=== PATIENT | female | born 1955 | race Caucasian/White ===

== ENCOUNTER 2019-11-12 14:22 | Outpatient (CLI) | payer MEDICARE, MEDICAID, SELFPAY ==
--- NOTE | ~2019-11-12 | MM_ITS ---
EXAMINATION: MM screening jamila BI w abebe HISTORY: Screening mammogram TECHNIQUE: Craniocaudal and mediolateral oblique 3-D tomosynthesis images were obtained and synthetic 2-D images were generated. CAD analysis was submitted and interpreted. COMPARISON: 11/08/2018 bilateral digital screening mammogram 11/30/2017 diagnostic right digital mammogram 10/31/2017, 09/23/2016, 08/26/2015 bilateral digital screening mammogram examinations BREAST PARENCHYMAL COMPOSITION: There are scattered areas of fibroglandular density. FINDINGS: Numerous scattered bilateral benign calcifications. There is no evidence of suspicious mass , calcification, or architectural distortion to suggest malignancy in either breast. There has been n o suspicious interval change. IMPRESSION: 1. No mammographic evidence of malignancy. 2. Recommend routine screening mammography in one year. BI-RADS Category 2: Benign finding(s). Reviewed, dictated and finalized at location A. DENTIAL TREATMENT SPECIALIST
== END 2019-11-12 14:23 | disposition home or self-care (01) ==
LOC: ANHIMG 14:29
PROVIDERS: PCP Internal Medicine; Visit Provider Internal Medicine
DX: Z12.31 Encounter for screening mammogram for malignant neoplasm of breast (principal)
CPT/HCPCS: 77063; 77067

== ENCOUNTER 2020-05-13 12:26 | Outpatient (CLI) | payer MEDICARE, MEDICAID, SELFPAY ==
--- NOTE | ~2020-05-13 | US_ITS ---
EXAMINATION: US retroperitoneal comp DATE: 05/13/2020 13:00 INDICATION: Right ureteral stone TECHNIQUE: Multiple grayscale, color Doppler, and pulsed Doppler images of the kidneys and renal ryan sarah were obtained. COMPARISON: KUB dated 05/13/2020 FINDINGS: The right kidney measures 9.4 x 4.9 x 6.0 cm. The left kidney measures 10.8 x 5.4 x 5.1 cm. The kidne ys demonstrate normal echogenicity. Approximately 8 mm echogenic and shadowing stone at the mid right kidney. There is no hydronephrosis in either kidney. The bladder is normal with bilateral ureteral j ets visualized on color Doppler. IMPRESSION: 1. 8 mm right renal stone. No hydronephrosis. Reviewed, dictated and finalized at location B.
--- NOTE | ~2020-05-13 | XR_ITS ---
XR abdomen/kub 1V DATE: 05/13/2020 13:03 INDICATION: Bilateral calcium kidney stones TECHNIQUE: AP projection, 2 views COMPARISON: 06/18/2013 KUB FINDINGS: Multiple surgical clips overlie both upper quadrants of the abdomen. There is calcification of the abdominal aorta and iliac arteries. Radiopaque bowel sutures are noted overlying the right lower quadrant. Approximately 3 x 8.8 mm calcification overlying the right renal silhouette. Smaller calcifications a re noted overlying the right kidney. An approximately 2 mm calcific location overlies the lower pole of left kidney. Subtle minimally calcified additional possible renal stones may be present on the lef t. The psoas shadows are intact. No visceromegaly is evident. No evidence of bowel obstruction. IMPRESSION: Possible bilateral calcified kidney stones; noncontrast CT abdomen pelvis examination wou ld be more accurate for detection of urinary tract calculi. Postoperative change of the abdomen Reviewed, dictated and finalized at Location A. Reviewed, dictated and finalized at location A. IMPRESSION: Possible bilateral calcified kidney stones; noncontrast CT abdomen pelvis examination would be more accurate for detection of urinary tract calcul i. Postoperative change of the abdomen
== END 2020-05-13 12:27 | disposition home or self-care (01) ==
PROVIDERS: PCP Internal Medicine; Visit Provider Urology
DX: N20.2 Calculus of kidney with calculus of ureter (principal)
CPT/HCPCS: 74018; 76770

== ENCOUNTER 2020-05-26 10:49 | Outpatient (CLI) | payer MEDICARE, MEDICAID, SELFPAY ==
--- NOTE | 2020-05-26 11:02 | ECG_ITS ---
Measurements Intervals [place] Rate: 77 P: 51 MT: 160 QRS: 53 QRSD: 97 T: 55 QT: 373 QTc: 425 Interpretive Statements SINUS RHYTHM BASELINE ARTIFACT- V6 NORMAL ECG Electronically Signed On 05-26-2020 11:18:34 CDT by Cortes Wade D.O.
[2020-05-26 11:37] LABS: Hematocrit 38.6 % (37.0-47.0); Hemoglobin 12.1 g/dL (12.0-15.0)
[2020-05-26 12:16] LABS: INR 0.9; Prothrombin Time 12.2 Seconds (11.1-14.7)
== END 2020-05-26 10:50 | disposition home or self-care (01) ==
PROVIDERS: Anesthesiology; PCP Internal Medicine; Visit Provider Urology
DX: Z01.812 Encounter for preprocedural laboratory examination (principal); Z01.810 Encounter for preprocedural cardiovascular examination; N20.0 Calculus of kidney; D50.9 Iron deficiency anemia, unspecified; I49.9 Cardiac arrhythmia, unspecified
CPT/HCPCS: 36415; 85014; 85018; 85610; 85730; 87077; 87086; 87088; 87186; 93005

== ENCOUNTER 2020-05-28 00:11 | Outpatient (CLI) | payer MEDICARE, MEDICAID, SELFPAY ==
[2020-05-28 18:28] LABS: SARS-CoV-2 RNA PCR Negative
== END 2020-05-28 00:12 | disposition home or self-care (01) ==
LOC: ANHCOVIDDT 00:12
PROVIDERS: PCP Internal Medicine; Visit Provider Urology
DX: Z01.812 Encounter for preprocedural laboratory examination (principal); Z20.828 Contact with and (suspected) exposure to other viral communicable diseases
CPT/HCPCS: 87635; C9803; U0003

== ENCOUNTER 2020-05-30 04:18 | Day surgery (SDC) | payer MEDICARE, MEDICAID, SELFPAY ==
[2020-05-23 10:46] VITALS: BMI 31.1
[2020-05-30] VITALS (7 sets, daily range): BP systolic 129–143; BP diastolic 55–87; PULSE 75–96; RESP 12–18; TEMP 36.2–36.3; O2SAT 97–100
--- NOTE | ~2020-05-30 | XR_ITS ---
XR abdomen/kub 1V 05/30/2020 09:45 Indication: Renal stones Procedure: KUB Comparison: 05/13/2020 Findings: There are bilateral renal stones. Largest stone in the right kidney measures approximately 8 mm. There are surgical clips in the upper abdomen bilaterally. Bowel pattern is nonobstructive. The re are pelvic calcifications unchanged, likely phleboliths. No acute osseous abnormality. Impression: 1: Bilateral nephrolithiasis. Reviewed, dictated and finalized at location B. Impression: 1: Bilateral nephrolithiasis.
--- NOTE | 2020-05-30 10:07 | WPDANESEPPF ---
Anes - Initial Pre Proc Eval Procedure: Operation Date: 05/30/20 12:00 Proposed Procedures p Right Renal Extracorporeal Shock Wave Lithotripsy - David Pino MD Date/Time: 05/30/20 10:07 Surgeon: David Pino MD Pre Op Diagnosis: right kidney stone Patient Data Age: 64 Gender: F Height: 1.57 m Weight: 77.15 kg Allergies Allergy/AdvReac Type Severity Reaction Status Date / Time codeine Allergy Unknown Gastrointestinal Verified 05/30/20 10:20 Upset Sulfa (Sulfonamide Allergy Unknown THROAT Verified 05/30/20 10:20 Antibiotics) SWELLING/TROUBLE BREATHING Home Medications Medication Instructions Recorded Confirmed Type ondansetron HCl 4 mg tablet 4 mg PO Q8H PRN #90 tablet 09/24/19 05/23/20 Rx montelukast 10 mg tablet 10 mg PO DAILY #90 tablet 11/12/19 05/23/20 Rx albuterol sulfate 90 mcg/actuation 1 puff INHALATION Q4H PRN #8.5 gm 01/21/20 05/23/20 Rx aerosol inhaler omeprazole 40 mg capsule,delayed 40 mg PO BID 90 Days #180 cap 01/29/20 05/23/20 Rx release famotidine 40 mg tablet 40 mg PO DAILY #90 tablet 03/11/20 05/23/20 Rx fluticasone 250 mcg-salmeterol 50 1 inhalation INHALATION BID #180 03/11/20 05/23/20 Rx mcg/dose blistr powdr for each inhalation mirabegron 25 mg tablet,extended 25 mg PO DAILY #90 tablet 03/13/20 05/23/20 Rx release 24 hr ergocalciferol (vitamin D2) 1,250 1,250 mcg PO WEEKLY #12 cap 03/18/20 05/23/20 Rx mcg (50,000 unit) capsule hydrocodone 5 mg-acetaminophen 325 1 tablet PO Q8H PRN #90 tablet 05/12/20 05/23/20 Rx mg tablet diltiazem HCl [DILT-XR] 240 mg PO QAM 05/23/20 05/23/20 History fluoxetine 20 mg PO QAM 05/23/20 05/23/20 History levothyroxine 88 mcg PO QAM 05/23/20 05/23/20 History topiramate 100 mg PO BID 05/23/20 05/23/20 History umeclidinium [Incruse Ellipta] 1 inh INHALATION QAM 05/23/20 05/23/20 History Patient hx anesthesia problems: none Family hx anesthesia problems: none PMFSH Past Medical History Medical History (Updated 05/29/20 @ 11:04 by Rigoberto Celeste DO) Adenomatous colon polyp Chronic abdominal wound infection Chronic obstructive pulmonary disease, unspecified Chronic pain disorder Essential (primary) hypertension Gastric ulcer Gastroesophageal reflux disease Hyperlipidemia, unspecified Nausea Surgical History Surgical History (Updated 09/24/19 @ 11:27 by Bharath Sharp MD) Bariatric surgery status Social History Social History Smoking packs per day: 1 Smoking cigarettes per day: 20.0 Years smoked: 42 Smoking pack-years: 42.00 Smoking status: Former smoker Tobacco type: cigarettes Second hand tobacco smoke exposure: No Smoking end date: 09/12/12 Alcohol intake: never Living arrangements: with family Spiritual care concerns: No Anes - Eval Final PreProcedure Day of Procedure 05/30/20 10:07 Patient weight: obese Heart: regular rate and rhythm Lungs: clear to auscultation and normal air movement Airway: Mallampati scale class II Neurological: alert and oriented Last oral intake: >/= 8 hours ASA classification: III Emergent: no Anesthetic plan: proceed Anesthesia type and monitoring: general LMA and standard monitoring Informed Consent: The patient's anesthetic plan and its attendant risks and benefits were discussed with the patient/family/POA. Questions were solicited and answers provided to the satisfaction of the patient/family/POA.
[2020-05-30] MEDS: LACTATED RINGERS 1,000 ML 30 ML IV CONT ×2 (10:10→11:50)
[2020-05-30 10:34] LABS: Partial Thromboplastin Time 28.1 SECONDS (22.3-36.8)
--- NOTE | 2020-05-30 10:38 | WPDHPUPDATE1 ---
History and Physical Update Update Date/Time: 05/30/20 10:38 History and Physical has been reviewed, including an updated exam of the patient. There are NO changes in the patient's condition. Risks, benefits, and alternatives have been discussed and questions answered. Patient agrees to proceed with procedure. Plan for eswl right renal calculus
[2020-05-30] MEDS: ceFAZolin 2 GM/D5W 50 ML 2 GM/50 ML BAG IVPB (11:05)
--- NOTE | 2020-05-30 11:43 | PM.PROC ---
Procedure Note - Detailed Date of procedure: 05/30/20 Pre-op diagnosis: right kidney stone Post-op diagnosis: same Procedure performed: ESWL right renal calculus 8-9 mm Description of procedure: patient is taken the operative suite and correctly identified. Once anesthesia was obtained stone was localized in both planes. Two thousand five hundred shocks were given to the stone. Patient tolerated procedure well without any complications and was taken recovery room stable condition. She will strain her urine and follow up in the office in about 10 days with a KUB. Anesthesia: GLMA Surgeon: David Pino MD Drains: No Packing: No Pathology: none sent Complications: No immediate complications Condition: stable Disposition: PACU
[2020-05-30] MEDS: ONDANSETRON INJ 4 MG/2 ML VIAL IV PUSH (11:57)
[2020-05-30] MEDS: diphenhydrAMINE HCl INJ 50 MG/ML VIAL 25 MG IV PUSH (12:21)
== END 2020-05-30 13:36 | disposition home or self-care (01) ==
PROVIDERS: PCP Internal Medicine; Visit Provider Urology
PROC: (CPT 50590; principal; 2020-05-30 12:00)
DX: N20.0 Calculus of kidney (principal); J44.9 Chronic obstructive pulmonary disease, unspecified; I10 Essential (primary) hypertension; K21.9 Gastro-esophageal reflux disease without esophagitis; E78.5 Hyperlipidemia, unspecified; K27.9 Peptic ulcer, site unspecified, unspecified as acute or chronic, without hemorrhage or perforation; Z98.84 Bariatric surgery status; Z87.891 Personal history of nicotine dependence; E66.9 Obesity, unspecified; Z68.32 Body mass index [BMI] 32.0-32.9, adult
CPT/HCPCS: 50590; 36415; 74018; 85730; J0690; J1100; J1200; J2250; J2405; J2704; J3010; J7120

== ENCOUNTER 2020-06-11 11:42 | Outpatient (CLI) | payer MEDICARE, MEDICAID, SELFPAY ==
--- NOTE | ~2020-06-11 | XR_ITS ---
XR abdomen/kub 1V DATE: 06/11/2020 12:06 INDICATION: Right ureteral stone TECHNIQUE: AP projection, 2 views COMPARISON: 05/30/2020 KUB FINDINGS: There are surgical clips overlying both upper quadrants of the abdomen and radiopaque sutur es overlying the right mid abdomen. There are small calcific densities overlying both kidneys consistent with probable bilateral nephroli thiasis. Noncontrast CT abdomen pelvis examination would be more definitive for evaluation of number and location of urinary tract stones. No apparent ureteral calcified stone is noted. There are bilate ral calcified pelvic phleboliths. There is atherosclerotic calcification of the abdominal aorta and iliac and femoral arteries. IMPRESSION: Postoperative changes of the abdomen Suggestion bilateral nephrolithiasis; noncontrast CT abdomen pelvis would be more reliable for evalua tion of urinary tract calculi Reviewed, dictated and finalized at Location A. Reviewed, dictated and finalized at location B. IMPRESSION: Postoperative changes of the abdomen Suggestion bilateral nephrolithiasis; noncontrast CT abdomen pelvis would be mo re reliable for evaluation of urinary tract calculi
== END 2020-06-11 11:43 | disposition home or self-care (01) ==
PROVIDERS: PCP Internal Medicine; Visit Provider Urology
DX: N20.1 Calculus of ureter (principal)
CPT/HCPCS: 74018

== ENCOUNTER 2020-11-13 14:08 | Outpatient (CLI) | payer MEDICARE, MEDICAID, SELFPAY ==
--- NOTE | ~2020-11-13 | MM_ITS ---
EXAMINATION: MM screening jamila BI w abebe HISTORY: Screening TECHNIQUE: Craniocaudal and mediolateral oblique 3-D tomosynthesis images were obtained and synthetic 2-D images were generated. CAD analysis was submitted and interpreted. COMPARISON: Comparison to multiple prior studies sequentially, with oldest reviewed study dated 08/12. BREAST PARENCHYMAL COMPOSITION: There are scattered areas of fibroglandular density. FINDINGS: No significant change to benign-appearing bilateral breast calcifications. There is no evid ence of suspicious mass, calcification, or architectural distortion to suggest malignancy in either b reast. There has been no suspicious interval change. IMPRESSION: 1. No mammographic evidence of malignancy. 2. Recommend routine screening mammography in one year. BI-RADS Category 2: Benign finding(s). Reviewed, dictated and finalized at location A. H PIECER
== END 2020-11-13 14:09 | disposition home or self-care (01) ==
PROVIDERS: PCP Internal Medicine; Visit Provider Internal Medicine
DX: Z12.31 Encounter for screening mammogram for malignant neoplasm of breast (principal)
CPT/HCPCS: 77063; 77067

== ENCOUNTER 2021-06-15 11:42 | Outpatient (CLI) | payer MEDICARE, MEDICAID, SELFPAY ==
--- NOTE | ~2021-06-15 | XR_ITS ---
EXAMINATION: XR abdomen/kub 1V EXAM DATE: 06/15/2021 12:00 INDICATION:. TECHNIQUE: Frontal projection(s) of the abdomen for interpretation. Comparison is made to prior exami nation from 06/11/2020. FINDINGS: There are bilateral kidney stones, probably up to 5 mm on the right although the right anson al contour is obscured by bowel gas. Some of these kidney stones have been indicated. There is bowel anastomosis material. Moderate amount of colonic stool. No small bowel obstruction. Cholecystectomy c lips. There are mild bony degenerative changes. IMPRESSION: 1. Probable small bilateral nephrolithiasis. Reviewed, dictated and finalized at location A.
== END 2021-06-15 11:43 | disposition home or self-care (01) ==
LOC: ANHIMG 11:45
PROVIDERS: PCP Internal Medicine; Visit Provider Urology
DX: N20.0 Calculus of kidney (principal)
CPT/HCPCS: 74018

== ENCOUNTER 2021-12-15 14:14 | Outpatient (CLI) | payer MEDICARE, MEDICAID, SELFPAY ==
--- NOTE | ~2021-12-15 | MM_ITS ---
EXAMINATION: MM screening jamila BI w abebe HISTORY: Screening TECHNIQUE: Craniocaudal and mediolateral oblique 3-D tomosynthesis images were obtained and synthetic 2-D images were generated. CAD analysis was submitted and interpreted. COMPARISON: Comparison to multiple prior studies sequentially, with oldest reviewed study dated 09/23. BREAST PARENCHYMAL COMPOSITION: There are scattered areas of fibroglandular density. FINDINGS: No significant interval change to bilateral breast calcifications. There is no evidence of suspicious mass, calcification, or architectural distortion to suggest malignancy in either breast. T here has been no suspicious interval change. IMPRESSION: 1. No mammographic evidence of malignancy. 2. Recommend routine screening mammography in one year. BI-RADS Category 2: Benign finding(s). Reviewed, dictated and finalized at location A.
== END 2021-12-15 14:15 | disposition home or self-care (01) ==
PROVIDERS: PCP Internal Medicine; Visit Provider Internal Medicine
DX: Z12.31 Encounter for screening mammogram for malignant neoplasm of breast (principal)
CPT/HCPCS: 77063; 77067

== ENCOUNTER 2022-04-13 00:09 | Day surgery (SDC) | payer MEDICARE, MEDICAID, SELFPAY ==
[2022-03-26 13:46] VITALS: BMI 31.2
[2022-04-13 09:40] VITALS: BP 134/58; PULSE 106; RESP 18; TEMP 36.1; O2SAT 100; BMI 30.9
[2022-04-13] MEDS: LACTATED RINGERS 1,000 ML 150 ML IV CONT (10:09)
--- NOTE | 2022-04-13 10:29 | WPDANESEPPF ---
Anes - Initial Pre Proc Eval Procedure: Operation Date: 04/13/22 11:15 Proposed Procedures p Esophagogastroduodenoscopy & Colonoscopy - Bharath Sharp MD Date/Time: 04/13/22 10:29 Surgeon: Bharath Shrap MD Pre Op Diagnosis: YANCY Patient Data Age: 66 Gender: F Height: 1.55 m Weight: 74.3 kg Last Vital Signs Temp 97.0 F L 04/13/22 09:40 Pulse 106 H 04/13/22 09:40 Resp 18 04/13/22 09:40 BP 134/58 L 04/13/22 09:40 Pulse Ox 100 04/13/22 09:40 O2 Del Method Room Air 04/13/22 09:40 Allergies Allergy/AdvReac Type Severity Reaction Status Date / Time Sulfa (Sulfonamide Allergy Severe THROAT Verified 04/13/22 09:56 Antibiotics) SWELLING/TROUBLE BREATHING codeine AdvReac Intermediate Gastrointestinal Verified 04/13/22 09:56 Upset Home Medications Medication Instructions Recorded Confirmed Type diltiazem HCl 240 mg 240 mg PO QAM 05/23/20 04/13/22 History capsule,extended release 24 hr, controlled (DILT-XR) fluoxetine 20 mg capsule 20 mg PO QAM HOT FLASHES 05/23/20 04/13/22 History omeprazole 40 mg capsule,delayed 40 mg PO BID #180 caps 01/30/21 04/13/22 Rx release calcium carbonate 500 mg calcium 500 mg PO DAILY #90 tabs 08/04/21 04/13/22 Rx (1,250 mg) tablet fluticasone 250 mcg-salmeterol 50 1 inh inhalation BID #180 ea 08/05/21 04/13/22 Rx mcg/dose blistr powdr for inhalation (Advair Diskus) montelukast 10 mg tablet 10 mg PO DAILY #90 tabs 12/07/21 04/13/22 Rx ondansetron HCl 4 mg tablet 4 mg PO Q8H PRN nausea and 12/17/21 04/13/22 Rx vomiting #90 tabs umeclidinium 62.5 mcg/actuation 1 inh inhalation QAM #3 device 12/17/21 04/13/22 Rx blister powder for inhalation (Incruse Ellipta) levothyroxine 75 mcg tablet 75 mcg PO DAILY #90 tabs 12/28/21 04/13/22 Rx alendronate 70 mg tablet 70 mg PO WEEKLY #12 tabs 01/18/22 04/13/22 Rx topiramate 100 mg tablet 100 mg PO BID MIGRAINS #180 tabs 02/01/22 04/13/22 Rx ergocalciferol (vitamin D2) 1,250 1,250 mcg PO WEEKLY #12 caps 02/15/22 04/13/22 Rx mcg (50,000 unit) capsule (Vitamin D2) hydrocodone 5 mg-acetaminophen 325 1 tablet PO Q8H PRN pain #90 tabs 03/25/22 04/13/22 Rx mg tablet albuterol sulfate 90 mcg/actuation 1 puff inhalation Q4H PRN 03/26/22 04/13/22 History aerosol inhaler Shortness Of Breath cyanocobalamin (vitamin B-12) See Rx Instructions .Route .COMPLEX 03/26/22 04/13/22 History 1,000 mcg/mL injection solution famotidine 40 mg tablet 40 mg PO DAILY PRN Acid Reflux 03/26/22 04/13/22 History mirabegron 25 mg tablet,extended 25 mg PO DAILY 03/26/22 04/13/22 History release 24 hr (Myrbetriq) Patient hx anesthesia problems: none Family hx anesthesia problems: none Results Review: All pre-operative results and documents have been reviewed as part of the pre-operative evaluation. [facility], LAT[facility] Past Medical History Medical History Adenomatous colon polyp Chronic abdominal wound infection Chronic abdominal wound infection Chronic obstructive pulmonary disease, unspecified Chronic pain disorder COVID-19 Essential (primary) hypertension Gastric ulcer Gastroesophageal reflux disease Hyperlipidemia, unspecified Nausea Postmenopausal Postoperative intra-abdominal abscess Surgical History Surgical History Bariatric surgery status Family History Family History Sibling Hypertension Father Acute myocardial infarction, Onset Age: 62 Patient's father is Family history of cardiovascular disease, Onset Age: 62 Mother Family history of chronic obstructive pulmonary disease Family history of diabetes mellitus in first degree relative Patient's mother is Diabetes mellitus, Onset Age: 62 Social History Social History (Reviewed 12/17/21 @
--- NOTE | 2022-04-13 10:53 | PM.HPGS ---
History of Present Illness History of Present Illness Consent: Risks, benefits, and alternatives have been discussed and questions answered. Patient agrees to proceed with procedure. Chief complaint: YANCY Narrative: Mike Brandt is a 66 year old female with recurrent YANCY treated with iron in the past, Last EGD in 2019 that showed s/p bariatric surgery ? Billroth, ulcerated area in pylorus- negative pylori, Last colonoscopy 2019 with polyps. Denies overt gib. Review of Systems Constitutional: Constitutional: Denies headache(s) and Denies weakness Eyes: Eyes: Denies blurry vision ENT: Reports Normal hearing present, Denies headache(s) and Denies neck pain Cardiovascular: Cardiovascular: Denies chest pain and Denies dyspnea Respiratory: Respiratory: Denies dyspnea Gastrointestinal: Gastrointestinal: Reports no additional gastrointestinal complaints Genitourinary: Genitourinary: Denies dysuria Musculoskeletal: Musculoskeletal: Denies neck pain Integumentary/Breasts: Skin/Breast: Denies dry skin Neurologic: Reports Normal hearing present, Denies headache(s) and Denies weakness Psychiatric: Psychiatric: Denies anxiety Endocrine: Endocrine: Denies change in body appearance Hematologic/Lymphatic: Hematologic/Lymphatic: Denies easy bleeding Allergic/Immunologic: Allergic/Immunologic: Denies urticaria PMFSH Past Medical History Medical History Adenomatous colon polyp Chronic abdominal wound infection Chronic abdominal wound infection Chronic obstructive pulmonary disease, unspecified Chronic pain disorder COVID-19 Essential (primary) hypertension Gastric ulcer Gastroesophageal reflux disease Hyperlipidemia, unspecified Nausea Postmenopausal Postoperative intra-abdominal abscess Surgical History Surgical History Bariatric surgery status Family History Family History Sibling Hypertension Father Acute myocardial infarction, Onset Age: 62 Patient's father is Family history of cardiovascular disease, Onset Age: 62 Mother Family history of chronic obstructive pulmonary disease Family history of diabetes mellitus in first degree relative Patient's mother is Diabetes mellitus, Onset Age: 62 Social History Social History Smoking packs per day: 1.5 Smoking cigarettes per day: 30.0 Years smoked: 42 Smoking pack-years: 63.00 Smoking status: Never smoker Tobacco type: cigarettes Second hand tobacco smoke exposure: No Smoking end date: 09/12/12 Alcohol intake: never Substance use: never Substance use type: does not use Living arrangements: with family Gender identity (if verbalized by the patient): Female Spiritual care concerns: No Meds Home Medications and Allergies Home Medications Medication Instructions Recorded Confirmed Type diltiazem HCl 240 mg 240 mg PO QAM 05/23/20 04/13/22 History capsule,extended release 24 hr, controlled (DILT-XR) fluoxetine 20 mg capsule 20 mg PO QAM HOT FLASHES 05/23/20 04/13/22 History omeprazole 40 mg capsule,delayed 40 mg PO BID #180 caps 01/30/21 04/13/22 Rx release calcium carbonate 500 mg calcium 500 mg PO DAILY #90 tabs 08/04/21 04/13/22 Rx (1,250 mg) tablet fluticasone 250 mcg-salmeterol 50 1 inh inhalation BID #180 ea 08/05/21 04/13/22 Rx mcg/dose blistr powdr for inhalation (Advair Diskus) montelukast 10 mg tablet 10 mg PO DAILY #90 tabs 12/07/21 04/13/22 Rx ondansetron HCl 4 mg tablet 4 mg PO Q8H PRN nausea and 12/17/21 04/13/22 Rx vomiting #90 tabs umeclidinium 62.5 mcg/actuation 1 inh inhalation QAM #3 device 12/17/21 04/13/22 Rx blister powder for inhalation (Incruse Ellipta) levothyroxine 75 mcg tablet 75 mcg PO DAILY #
--- NOTE | 2022-04-13 11:13 | SUR.OPER ---
EGD ENDED 110 COLON BEGAN 111
[2022-04-13 11:30] VITALS: BP 106/63; PULSE 94; RESP 23; O2SAT 100
[2022-04-13 11:40] VITALS: BP 108/69; PULSE 94; RESP 19; O2SAT 100
[2022-04-13 11:50] VITALS: BP 130/76; PULSE 92; RESP 24; O2SAT 100
== END 2022-04-13 12:04 | disposition home or self-care (01) ==
PROVIDERS: PCP Internal Medicine; Visit Provider Internal Medicine Gastroenterology
PROC: 0DJ08ZZ Inspection of Upper Intestinal Tract, Via Natural or Artificial Opening Endoscopic (ICD-10-PCS; CPT 43235; principal; 2022-04-13 11:15)
DX: Z12.11 Encounter for screening for malignant neoplasm of colon (principal); D12.3 Benign neoplasm of transverse colon; K57.30 Diverticulosis of large intestine without perforation or abscess without bleeding; K64.8 Other hemorrhoids; Z86.16 Personal history of COVID-19; K44.9 Diaphragmatic hernia without obstruction or gangrene; I10 Essential (primary) hypertension; K21.9 Gastro-esophageal reflux disease without esophagitis; E78.5 Hyperlipidemia, unspecified; Z78.0 Asymptomatic menopausal state; Z98.84 Bariatric surgery status; E03.9 Hypothyroidism, unspecified; Z79.51 Long term (current) use of inhaled steroids; D50.8 Other iron deficiency anemias; K25.9 Gastric ulcer, unspecified as acute or chronic, without hemorrhage or perforation; Z87.891 Personal history of nicotine dependence; E66.9 Obesity, unspecified; Z68.31 Body mass index [BMI] 31.0-31.9, adult
CPT/HCPCS: 45385; 43239; 88305; 88342; J2704; J7120

== ENCOUNTER 2022-06-03 11:06 | Outpatient (CLI) | payer MEDICARE, MEDICAID, SELFPAY ==
--- NOTE | ~2022-06-03 | CT_ITS ---
EXAMINATION: CT abdomen pelvis wo con DATE: 06/03/2022 11:56 INDICATION: Right flank pain TECHNIQUE: Computed tomography (CT) of the abdomen and pelvis was performed without intravenous contr ast. The dose-length product (DLP) was 308.67 mGy-cm. Automated exposure control and iterative recons truction technique were employed. COMPARISON: 06/22/2013 FINDINGS: There is mild bronchial wall thickening in the lower lobes with centrilobular nodules and t ree-in-bud opacities. The heart size is normal. There are surgical changes near the gastroesophageal junction. The gallbladder is surgically absent. The liver, spleen, and pancreas are normal. There are stable bilateral adrenal masses containing macroscopic fat, consistent with myelolipomas. There are two stones of the right renal pelvis which measure 7 mm and 5 mm. Punctate nonobstructing stones of t he right kidney measure up to 2 mm. There are nonobstructing stones of the left kidney which measure up to 4 mm. Cysts of the kidneys measure up to 11 mm on the right. There is a 3 mm stone in the urina ry bladder near the left ureterovesicular junction. There is calcified atherosclerosis of the aorta a nd many of the other arteries. No pathologically enlarged abdominal or pelvic lymph nodes are identif ied. Colonic diverticulosis is present without evidence of diverticulitis. There is no free intraperi toneal gas or evidence of bowel obstruction. There are changes of mesh ventral hernia repair. IMPRESSION: 1. Stones of the right renal pelvis measuring 7 mm and 5 mm. 2. 3 mm stone in the urinary bladder. 3. Nonobstructing bilateral nephrolithiasis. Reviewed, dictated and finalized at location A.
== END 2022-06-03 11:07 | disposition home or self-care (01) ==
PROVIDERS: PCP Internal Medicine; Visit Provider Nurse Practitioner
DX: N21.0 Calculus in bladder (principal); N20.0 Calculus of kidney
CPT/HCPCS: 74176

== ENCOUNTER 2022-06-21 12:17 | Outpatient (CLI) | payer MEDICARE, MEDICAID, SELFPAY ==
--- NOTE | 2022-06-21 12:34 | ECG_ITS ---
Measurements Intervals [place] Rate: 95 P: 36 NE: 143 QRS: 29 QRSD: 93 T: 58 QT: 348 QTc: 439 Interpretive Statements SINUS RHYTHM COMPARED TO ECG 05/26/2020 11:34:12 NO SIGNIFICANT CHANGES Electronically Signed On 06-22-2022 13:06:27 CDT by Ann Garrison M.D.
[2022-06-21 14:06] LABS: Hemoglobin 10.3 g/dL (12.0-15.0)
[2022-06-21 14:17] LABS: Prothrombin Time 13.1 Seconds (11.1-14.7)
[2022-06-21 14:18] LABS: Partial Thromboplastin Time 29.7 SECONDS (22.3-36.8)
== END 2022-06-21 12:18 | disposition home or self-care (01) ==
LOC: ANHSURGERY 12:23
PROVIDERS: Anesthesiology; PCP Internal Medicine; Visit Provider Urology
DX: N20.0 Calculus of kidney (principal); D50.8 Other iron deficiency anemias; Z01.818 Encounter for other preprocedural examination
CPT/HCPCS: 36415; 85014; 85018; 85610; 85730; 87086; 93005

== ENCOUNTER 2022-06-25 01:08 | Day surgery (SDC) | payer MEDICARE, MEDICAID, SELFPAY ==
[2022-06-17 16:25] VITALS: BMI 30.2
--- NOTE | 2022-06-17 16:31 | SUR.PREOP ---
Addendum entered by Marie Padron RN 06/18/22 10:50: MAY ALSO TAKE FLUOXETINE AND TOPIRAMATE WITH A SMALL SIP OF WATER THE MORNING OF THE PROCEDURE. Original Note: Report to the Outpatient Waiting Room, entrance under the green pavilion located off [facility], at time 0630 on date 06/25/22. OR Time: 0830. Time changes happen often and if your time is changed the preop area will call you the afternoon before. - You and your visitor will be asked to self-screen and do not enter if you have any COVID symptoms. - We encourage only one visitor and NO visitors under age 16 are allowed at this time. Your visitor will receive communication by the phone number that is given day of service. - The patient visitor is requested to social distance or may leave the building when not with patient due to restrictions. - A mask is required within the hospital. Patients may have clear liquids (water, carbonated beverages, clear teas, apple juice) until 3 hours prior to surgery with a maximum of 20 ounces. - No food from midnight until time of surgery - Infants may have breast milk until 4 hours before surgery, infant formula 6 hours prior to surgery. - Children will be allowed to drink immediately following surgery. If applicable, please bring a bottle or sippy cup to assist with drinking. Juice, water, soda, and popsicles are readily available. For infants on formula, please bring formula the day of surgery. Pacifiers are allowed. Take the following medications with a SIP of water the morning of surgery: levothyroxine, diltiazem Medications to discontinue per physician hold vitamins and supplements for 3 days before surgery Date to take last dose Please no make-up, nail azeri, hairspray, perfume, deodorant, or body powder the day of surgery. No jewelry (including any body piercings) or valuables the day of surgery, leave them at home. Please take a shower or bath the night before, or the morning of, surgery with an antibacterial soap. Wear comfortable, loose fitting clothing. Children are encouraged to wear pajamas. - Jewelry must be removed prior to entering the operating room. Rings and piercings that are not removed may be cut off. - The hospital will not accept responsibility for valuables. - Please leave all valuables, including medications, at home the day of surgery. If you are going home after surgery, a licensed cpr ambulance driver must drive you home. - NO public transportation without another adult. - We recommend that an adult stay with you for 24 hours following discharge. - We also recommend that you do not drive, make important decision, drink alcoholic beverages, or take any drugs that were not prescribed by your health care provider for at least 24 hours after your discharge time. For Pediatric surgeries, we recommend two adults accompany the child home. Follow any additional instructions given to you from your surgeon. If you or anyone in your household have experienced Covid symptoms in the past week, please notify your surgeon or the nurse liaison at the phone number below for possible testing. Telephone instructions given to patient and asked if any additional questions and then verbalized understanding. Patient advised to call surgeon office or pre surgery nurse liaison [phone] if any additional questions.
[2022-06-25] VITALS (7 sets, daily range): BP systolic 90–126; BP diastolic 50–68; PULSE 94–110; RESP 10–18; TEMP 36.3–36.4; O2SAT 96–100
--- NOTE | ~2022-06-25 | XR_ITS ---
EXAMINATION: XR abdomen/kub 1V DATE: 06/25/2022 06:39 INDICATION: Kidney stone. TECHNIQUE: A supine view of the abdomen on 2 radiographs was obtained. COMPARISON: Abdomen radiographs 06/15/2021, CT abdomen and pelvis 06/03/2022 FINDINGS: There are phleboliths in the pelvis. There are 2 stones in right kidney with the larger deshawn suring 8 mm. There is a 3 mm stone in left kidney. IMPRESSION: 1. Bilateral kidney stones. Reviewed, dictated and finalized at location A. IMPRESSION: 1. Bilateral kidney stones.
[2022-06-25] MEDS: LACTATED RINGERS 1,000 ML 30 ML IV CONT (07:15)
--- NOTE | 2022-06-25 07:15 | WPDHPUPDATE1 ---
History and Physical Update Update Date/Time: 06/25/22 07:15 History and Physical has been reviewed, including an updated exam of the patient. There are NO changes in the patient's condition. Risks, benefits, and alternatives have been discussed and questions answered. Patient agrees to proceed with procedure. Proceed with right renal eswl
--- NOTE | 2022-06-25 07:32 | WPDANESEPPF ---
Anes - Initial Pre Proc Eval Procedure: Operation Date: 06/25/22 08:30 Proposed Procedures p Right Extracorporeal Shock Wave Lithotripsy - David Pino MD Date/Time: 06/25/22 07:32 Surgeon: David Pino MD Pre Op Diagnosis: Right Renal Stone Patient Data Age: 66 Gender: F Height: 1.57 m Weight: 72.4 kg Last Vital Signs Temp 36.4 C L 06/25/22 06:53 Pulse 110 H 06/25/22 06:53 Resp 18 06/25/22 06:53 BP 109/61 06/25/22 06:53 Pulse Ox 100 06/25/22 06:53 O2 Del Method Room Air 06/25/22 06:53 Allergies Allergy/AdvReac Type Severity Reaction Status Date / Time Sulfa (Sulfonamide Allergy Severe THROAT Verified 06/25/22 06:41 Antibiotics) SWELLING/TROUBLE BREATHING codeine AdvReac Intermediate Gastrointestinal Verified 06/25/22 06:41 Upset Home Medications Medication Instructions Recorded Confirmed Type diltiazem HCl 240 mg 240 mg PO QAM 05/23/20 06/25/22 History capsule,extended release 24 hr, controlled (DILT-XR) fluoxetine 20 mg capsule 20 mg PO QAM HOT FLASHES 05/23/20 06/25/22 History calcium carbonate 500 mg calcium 500 mg PO DAILY #90 tabs 08/04/21 06/25/22 Rx (1,250 mg) tablet umeclidinium 62.5 mcg/actuation 1 inh inhalation QAM #3 device 12/17/21 06/25/22 Rx blister powder for inhalation (Incruse Ellipta) ergocalciferol (vitamin D2) 1,250 1,250 mcg PO WEEKLY #12 caps 02/15/22 06/25/22 Rx mcg (50,000 unit) capsule (Vitamin D2) famotidine 40 mg tablet 40 mg PO DAILY PRN Acid Reflux 03/26/22 06/25/22 History omeprazole 40 mg capsule,delayed 40 mg PO BID #180 caps 04/13/22 06/25/22 Rx release mirabegron 25 mg tablet,extended 25 mg PO DAILY #90 tabs 05/10/22 06/25/22 Rx release 24 hr (Myrbetriq) topiramate 100 mg tablet 100 mg PO BID MIGRAINS #180 tabs 05/20/22 06/25/22 Rx montelukast 10 mg tablet 10 mg PO DAILY #90 tabs 06/04/22 06/25/22 Rx phenazopyridine 100 mg tablet 100 mg PO TID 06/04/22 06/25/22 History (Pyridium) tamsulosin 0.4 mg capsule (Flomax) 0.4 mg PO DAILY 06/04/22 06/25/22 History fluticasone 250 mcg-salmeterol 50 1 inh inhalation BID 06/17/22 06/25/22 History mcg/dose blistr powdr for inhalation (Advair Diskus) levothyroxine 75 mcg tablet 75 mcg PO DAILY #90 tabs 06/21/22 06/25/22 Rx sucralfate 1 gram tablet See Rx Instructions .Route 06/23/22 06/25/22 Rx .COMPLEX #90 tabs Patient hx anesthesia problems: post op nausea/vomiting Family hx anesthesia problems: post op nausea/vomiting Results Review: All pre-operative results and documents have been reviewed as part of the pre-operative evaluation. [facility] Past Medical History Medical History Adenomatous colon polyp Chronic abdominal wound infection Chronic abdominal wound infection Chronic obstructive pulmonary disease, unspecified Chronic pain disorder COVID-19 Essential (primary) hypertension Gastric ulcer Gastroesophageal reflux disease Hyperlipidemia, unspecified Nausea Postmenopausal Postoperative intra-abdominal abscess Surgical History Surgical History Bariatric surgery status Family History Family History Sibling Hypertension Father Acute myocardial infarction, Onset Age: 62 Patient's father is Family history of cardiovascular disease, Onset Age: 62 Mother Family history of chronic obstructive pulmonary disease Family history of diabetes mellitus in first degree relative Patient's mother is Diabetes mellitus, Onset Age: 62 Social History Social History Smoking packs per day: 1.5 Smoking cigarettes per day: 30.0 Years smoked: 42 Smoking pack-years: 63.00 Smoking status: Former smoker Tobacco type: cigarettes Second hand to
[2022-06-25] MEDS: ONDANSETRON INJ 4 MG/2 ML VIAL IV PUSH (08:21)
[2022-06-25] MEDS: SCOPOLAMINE 1.5 MG PATCH TRANSDERM (08:22)
[2022-06-25] MEDS: ceFAZolin 2 GM/D5W 50 ML 2 GM/50 ML BAG IVPB (08:30)
--- NOTE | 2022-06-25 09:17 | W.PM.PROC2 ---
Procedure Note - Detailed Date of Procedure 06/25/22 Pre-op Diagnosis Right Renal Stone Post-op Diagnosis Same Procedure Performed ESWL right renal calculus Surgeon David Pino MD Anesthesia General Description of Procedure Patient is taken to the operative suite correctly identified. Once anesthesia was obtained patient's right renal stone was localized. She had 2 stones adjacent to each other. Two thousand five hundred shocks total were given to this area. Patient tolerated procedure well without any complications and was taken recovery stable condition. She will follow-up in 7-10 days with [facility]. Developed any problems to call the office to be dealt with appropriately Drains No Packing No Pathology None sent Complications No immediate complications Condition Stable Disposition PACU
[2022-06-25] MEDS: fentaNYL CITRATE INJ (*CRX) 100 MCG/2 ML VIAL 25 MCG IV PUSH ×4 (09:28→09:57)
== END 2022-06-25 10:54 | disposition home or self-care (01) ==
PROVIDERS: PCP Internal Medicine; Visit Provider Urology
PROC: (CPT 50590; principal; 2022-06-25 08:30)
DX: N20.0 Calculus of kidney (principal); I10 Essential (primary) hypertension; K21.9 Gastro-esophageal reflux disease without esophagitis; J44.9 Chronic obstructive pulmonary disease, unspecified; E78.5 Hyperlipidemia, unspecified; G89.29 Other chronic pain; Z98.84 Bariatric surgery status; Z87.891 Personal history of nicotine dependence; Z79.51 Long term (current) use of inhaled steroids
CPT/HCPCS: 50590; 74018; A9270; J0690; J1100; J2405; J2704; J3010; J7120

== ENCOUNTER 2022-07-01 18:58 | Inpatient (IN) | payer MEDICARE, MEDICAID, SELFPAY ==
--- NOTE | ~2022-07-01 | CT_ITS ---
EXAMINATION: CT abdomen pelvis w con DATE: 07/04/2022 06:50 INDICATION: Transaminitis. TECHNIQUE: Computed tomography (CT) of the abdomen and pelvis was performed with 100 mL Omnipaque-350 intravenous contrast. Automated exposure control and iterative reconstruction technique were employe d. The dose-length product was 686.16 mGy-cm. COMPARISON: 06/03/2022 FINDINGS: Calcified right lower lobe nodule consistent with old granulomatous disease. Consistent with mild bro nchiectasis and numerous tiny centrilobular nodules with tree-in-bud pattern in the bilateral lower l obes. Heart size is normal. Atherosclerotic coronary artery calcific location. No pericardial effusio n. Postoperative changes at the proximal stomach. Unchanged intra and extra hepatic biliary ductal di lation with the common bile duct measuring up to 12 mm in maximal diameter. This likely related to pr ior cholecystectomy with surgical clips at the gallbladder fossa. Bilateral macroscopic fat-containin g adrenal myelolipomas, the larger on the right measuring 3.0 cm and the smaller left measuring 2.3 c m. Small cyst at the upper poles of both kidneys largest on the left measuring 1.4 cm. 2 mm nonobstructi ng left renal stone. Right internal ureteral stent with loops formed in the bladder and an upper pole calyx.. Right renal stones, the largest measuring 3 to 4 mm at the right renal pelvis with smaller s tones in the inferior calyces. No stones along the right ureter. No hydronephrosis. There is haziness to the fat at the right renal sinus and small regions of subtle decreased cortical enhancement at th e upper pole the right kidney suspicious for ascending urinary tract infection with pyelitis and pyel onephritis. Postoperative change of prior ventral hernia mesh repair. There is mild colonic diverticulosis with a sigmoid predominance. There is no adjacent inflammatory change to suggest diverticulitis. Normal a ppendix. Masslike suture line along a segment of small bowel in the anterior lower abdomen. No bowel obstruction. Bladder is normal. The uterus is not identified and has likely been surgically resected. No free intraperitoneal gas or fluid. No pathologically enlarged abdominal or pelvic lymphadenopathy . Multiple subcutaneous dystrophic calcifications in ringlike density surrounding central macroscopic fat and anterior abdominal wall and a larger partially calcified nodule in the subcutaneous fat at t he left buttock, all likely related to subcutaneous injections, secondary fat necrosis and granuloma formation. There is calcified atherosclerosis of the aorta and many of the other arteries. Mild scatt ered degenerative skeletal changes. IMPRESSION: 1. Nonobstructing right nephrolithiasis with right internal ureteral stent in expected position. 2. Mild haziness to the right renal fat suggesting ascending urinary tract infection and pyelitis. 3. Unchanged mild intra and extra hepatic biliary ductal dilation likely related to prior cholecystec kyle but could correlate with liver function tests. 4. Bilateral adrenal myelolipomas, the larger on the right measuring 3 cm. 5. Stable appearance of mild bronchiectasis and tree-in-bud opacities in the bilateral lower lung zon es, likely sequela of chronic infection. Reviewed, dictated and finalized at location A. IMPRESSION: 1. Nonobstructing right nephrolithiasis with right internal ureteral stent in e xpected position. 2. Mild haziness to the right renal fat suggesting ascending urinary tract infe ction and pyelitis. 3. Unchanged mild intra and extra hepatic biliary ductal dilation likely relate d to prior cholecystectomy but could correlate with liver function tests. 4. Bilateral adrenal myelolipomas, the larger on the right measuring 3 cm. 5. Stable a
--- NOTE | ~2022-07-01 | US_ITS ---
EXAMINATION: US abdomen limited DATE: 07/03/2022 08:20 INDICATION: Transaminitis TECHNIQUE: Multiple grayscale and Doppler ultrasound images of the abdomen were obtained. COMPARISON: CT, 06/03/2022 FINDINGS: The head and body of the pancreas are normal. The pancreatic tail is obscured by bowel gas. There are mildly dilated intrahepatic bile ducts in the left hepatic lobe in association with a slig htly hyperechoic area. The liver is otherwise normal with normal echogenicity and echotexture. No jane face nodularity. Normal hepatopetal flow in the main portal vein. The gallbladder is surgically absen t. The common bile duct measures 11 mm, consistent with post cholecystectomy state. There was no sono graphic Levin sign. A right internal ureteral stent is noted. IMPRESSION: 1. Mildly dilated intrahepatic bile ducts in the left hepatic lobe in association with a hyperechoic area of unclear significance. Recommend follow-up CT with contrast. Reviewed, dictated and finalized at location A. IMPRESSION: 1. Mildly dilated intrahepatic bile ducts in the left hepatic lobe in associati on with a hyperechoic area of unclear significance. Recommend follow-up CT with contrast.
--- NOTE | ~2022-07-01 | MR_ITS ---
EXAMINATION: MR MRCP wo/w con/w 3D wo ind DATE: 07/06/2022 12:42 INDICATION: Dilated bile duct. TECHNIQUE: Magnetic resonance imaging (MRI) of the abdomen was performed without and with 15 mL Multi Marielena intravenous contrast. Sequences included coronal T2-weighted FS FSE, coronal T2-weighted FSE, a xial T1-weighted LAVA, coronal FS FIESTA, axial dual-echo T1-weighted SPGR, coronal lava-FLEX, sagitt al T2-weighted FSE, axial T2-weighted FSE, and axial DWI. Thick-slab T2-weighted FSE images were obta ined for magnetic resonance cholangiopancreatography (MRCP). Maximum intensity projection 3-D reconst ructions of the volumetric data were created by the technologist. Postcontrast sequences included cor onal LAVA-flex and time course of axial T1-weighted LAVA. COMPARISON: CT abdomen and pelvis 07/04/2022, 06/22/13 FINDINGS: ABDOMEN MRI: There is decreased signal in the liver and spleen on in-phase imaging, consistent with h emosiderosis. There is mild intrahepatic biliary duct dilatation. The gallbladder is absent. 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 There are masses in the adrenal glands bilaterally containing fat measu ring up to 3.3 cm on the right, consistent with myelolipomas. There is cortical thinning of the kidne ys. There are cysts in the kidneys measuring up to 14 mm on the right. There are no dilated loops of bowel. There are no pathologically enlarged lymph nodes. There is no free intraperitoneal fluid. Ther e is chronic subcutaneous fat necrosis in anterior abdominal wall. ABDOMEN MRCP: The common duct is dilated to 11 mm. IMPRESSION: 1. Mild intrahepatic and extrahepatic biliary duct dilatation status post cholecystectomy, stable fro m 06/22/13. No choledocholithiasis. Reviewed, dictated and finalized at location A. IMPRESSION: 1. Mild intrahepatic and extrahepatic biliary duct dilatation status post curt cystectomy, stable from 06/22/13. No choledocholithiasis.
--- NOTE | ~2022-07-01 | XR_ITS ---
EXAMINATION: XR retrograde pyelo w/stent RT DATE: 07/02/2022 14:56 INDICATION: Right kidney stones. TECHNIQUE: 4 intraoperative spot fluoroscopic views of the abdomen and pelvis were obtained. I was no t present. Fluoroscopy exposure time was 58 seconds. COMPARISON: CT abdomen and pelvis 06/03/2022 FINDINGS: The right-sided retrograde pyelogram demonstrates mild right hydronephrosis. The final imag es demonstrate a right internal ureteral stent in expected position. IMPRESSION: 1. Right internal ureteral stent in expected position. Reviewed, dictated and finalized at location A.
--- NOTE | 2022-07-01 19:02 | ADMGEN ---
This patient, Mike Brandt, was admitted to [address] [facility] Surg Room 300-01. Patient/family oriented to hospital policies and general routines including ID bracelet, bed and alarms, visiting hours, pain management, procedures, bathroom and other care routines, personal items, smoking policy, room service/diet, and visiting hours. Information on how to activate the Rapid Response Team has been discussed. Patient/Family are encouraged to report perceived risks to care and to ask questions if they do not understand what they are told or what they should do.
[2022-07-01 20:36] VITALS: BP 122/58; PULSE 112; RESP 18; TEMP 36.9; O2SAT 99
--- NOTE | 2022-07-01 20:59 | WPDURCON ---
Assessment and Plan Assessment and plan (1) Right ureteral stone: Code(s): N20.1 - Calculus of ureter Status: Acute Plan 66F with retained 7mm obstructing stone in the mid right ureter after right renal ESWL last week without infection on UA and no fevers/leukocytosis currently. - Balance of care per primary team. Hydration and PO intake ok until midnight tonight as patient has already had some PO intake throughout the day today. - NPO at midnight tonight for possible cystoscopy and right ureteral stent placement tomorrow. Urology Consult Note HPI Date Seen: 07/01/22 Requesting Physician: Vivek Crow MD Primary Care Provider: Kartik Abarca DO Consult Narrative Narrative: Mike Brandt is a 66 year old female with history of pyloric ulcer and chronic anemia presenting with retained right ureteral stones s/p ESWL. Patient underwent ESWL for a right renal stone last week with Dr. Pino. SHe stated after this procedure, a few days later she began to feel pain on her right side that seemed to worsen. Then yesterday it continued to worsen and she was having nausea/emesis. Called clinic and was told to present to ED. Patient denied any fevers/chills. In ED at [facility], a UA did not note any signs of infection, WBC 9, Cr 0.9. However, she was noted to have multiple fragments in the right kidney and a right 7mm obstructing mid/distal ureteral stone with proximal hydronephrosis, along with multiple up to 9mm stones in the right kidney. She was then transferred to [place]. Here the patient states she still has some discomfort but feels better. Continues to deny fevers/chills. Mild tachycardia, but states she runs tachycardic due to her anemia. She did have some PO intake intermittently today prior to beig transferred to our ED. Review of Systems Review of Systems: Neg other than HPI PMFSH Past Medical History Medical History Adenomatous colon polyp Chronic abdominal wound infection Chronic abdominal wound infection Chronic obstructive pulmonary disease, unspecified Chronic pain disorder COVID-19 Essential (primary) hypertension Gastric ulcer Gastroesophageal reflux disease Hyperlipidemia, unspecified Nausea Postmenopausal Postoperative intra-abdominal abscess Surgical History Surgical History Bariatric surgery status Family History Family History Sibling Hypertension Father Acute myocardial infarction, Onset Age: 62 Patient's father is Family history of cardiovascular disease, Onset Age: 62 Mother Family history of chronic obstructive pulmonary disease Family history of diabetes mellitus in first degree relative Patient's mother is Diabetes mellitus, Onset Age: 62 Social History Social History Smoking packs per day: 1.5 Smoking cigarettes per day: 30.0 Years smoked: 42 Smoking pack-years: 63.00 Smoking status: Former smoker Tobacco type: cigarettes Second hand tobacco smoke exposure: No Smoking end date: 06/17/22 Alcohol intake: never Substance use: never Substance use type: does not use Gender identity (if verbalized by the patient): Female Spiritual care concerns: No Meds Home Medications and Allergies Home Medications Medication Instructions Recorded Confirmed Type diltiazem HCl 240 mg 240 mg PO QAM 05/23/20 07/01/22 History capsule,extended release 24 hr, controlled (DILT-XR) fluoxetine 20 mg capsule 20 mg PO QAM HOT FLASHES 05/23/20 07/01/22 History calcium carbonate 500 mg calcium 500 mg PO DAILY #90 tabs 08/04/21 07/01/22 Rx (1,250 mg) tablet umeclidinium 62.5 mcg/actuation 1 inh inhalation QAM #3 device 12/17/21 07/01/22 Rx blister powder for inhalation (Inc
--- NOTE | 2022-07-01 21:37 | PM.IMHP ---
H&P: HPI History of Present Illness Date/Time: 07/01/22 21:37 Chief Complaint: Right flank pain Narrative: this is a 66-year-old female patient who has a history of having kidney stones. The patient was having right flank pain and was seen at [facility] in [place]. The patient also has chronic anemia due to a gastric ulcer that is in the pylorus of the stomach after a gastric bypass. She has had blood transfusions in the past. Her white count was 9.4 today. Her H&H was 8.6 and 29.9 at [facility]. Urinalysis had 3+ blood but was negative for UTI. The patient does does have a history of SVT and is on diltiazem. The patient was tachycardic today. The patient has been seen by Dr. Pino in the past. Urology had been notified and agreed to consult on this patient. Her urine was sent for culture. The patient had a CT of the abdomen and pelvis the patient has approximately 5 x 4 x 7 mm calculus in the right ureter near level of iliac vessels which produces moderate right hydronephrosis and hydroureter. Enlargement of the right kidney and edema in the Alisha nephric space. Secondary infection cannot be excluded. Urology has been here and has already seen the patient. The plan is for a stent. The patient was given morphine at [facility] the patient stated that she only had minimal relief. The patient stated that she has had Dilaudid in the past. the patient had ESWL right renal calculus on 06/25/2022 please see operative note for that date. The patient is being admitted to observation status on the date of service of 07/01/2022. Review of Systems Review of Systems: See HPI All systems reviewed & are unremarkable except as noted in HPI and below Constitutional: Constitutional: Reports as per HPI and Reports no additional constitutional complaints Eyes: Eyes: Reports as per HPI and Reports no additional eye complaints ENT: Reports system reviewed and no additional complaints, except as documented and Reports Normal hearing present Cardiovascular: Cardiovascular: Reports no additional cardiovascular complaints Respiratory: Respiratory: Reports no additional respiratory complaints and Reports no additional respiratory complaints Gastrointestinal: Gastrointestinal: Reports as per HPI and Reports no additional gastrointestinal complaints Musculoskeletal: Musculoskeletal: Reports no additional musculoskeletal complaints Integumentary/Breasts: Skin/Breast: Reports system reviewed and no additional complaints, except as docu and Reports as per HPI Neurologic: Reports system reviewed and no additional complaints, except as documented, Reports as per HPI and Reports Normal hearing present Psychiatric: Psychiatric: Reports no additional psychiatric complaints and Reports as per HPI Endocrine: Endocrine: Reports no additional endocrine complaints Hematologic/Lymphatic: Hematologic/Lymphatic: Reports no additional hematologic/lymphatic complaints Allergic/Immunologic: Allergic/Immunologic: Reports no additional allergic/immunologic complaints COUNTS INCLUDE 234 BEDS AT THE [facility] Past Medical History Medical History (Updated 07/01/22 @ 21:58 by Kaykay Barker NP) Abnormal mammogram Adenomatous colon polyp Chronic abdominal wound infection Chronic abdominal wound infection Chronic obstructive pulmonary disease, unspecified Chronic pain disorder COVID-19 Encounter for HCV screening test for low risk patient Essential (primary) hypertension Gastric ulcer Gastroesophageal reflux disease Hyperlipidemia, unspecified Impaired glucose tolerance (oral) Left wrist pain Migraine Nausea Postmenopausal Postoperative intra-abdominal abscess Right sided sciatica SVT (supraventricular tachycardia) Uterine bleeding, dysfunctional Surgical History Surgical History (Updated 07/01/22 @ 21:46 by Kaykay Barker NP) Bariatric surgery status Hx of abdominal surgery the patient stated she had a triple hernia repair. She had mesh placed in
[2022-07-01] MEDS: HYDROmorphone HCL INJ (*CRX) 1 MG/ML SYR IV PUSH (22:12)
[2022-07-01] MEDS: DEXTROSE 5%/0.9% SOD CHL 1,000 ML 100 ML IV CONT (22:17)
[2022-07-01] MEDS: PANTOPRAZOLE SODIUM IV 40 MG VIAL IV PUSH (22:18)
[2022-07-01] MEDS: ONDANSETRON INJ 4 MG/2 ML VIAL IV PUSH (22:19)
[2022-07-01] MEDS: TOPIRAMATE 100 MG TABLET PO (22:21)
[2022-07-01 23:37] VITALS: BP 105/61; PULSE 101; RESP 18; TEMP 36.1; O2SAT 98
[2022-07-02] VITALS (12 sets, daily range): BP systolic 101–122; BP diastolic 41–57; PULSE 69–102; RESP 16–20; TEMP 36.2–37.2; O2SAT 92–100; BMI 31.4
[2022-07-02] MEDS: HYDROmorphone HCL INJ (*CRX) 1 MG/ML SYR IV PUSH ×5 (03:45→22:07)
[2022-07-02] MEDS: ONDANSETRON INJ 4 MG/2 ML VIAL IV PUSH ×3 (04:00→22:13)
[2022-07-02 06:36] LABS: Lactic Acid Reflex 0.6 mmol/L (0.7-2.0)
[2022-07-02 06:42] LABS: Alanine Aminotransferase 127 U/L (6-35); Albumin Level 2.7 g/dL (3.5-5.1); Alkaline Phosphatase 288 U/L (38-126); Anion Gap 11 mmol/L (8-16); Aspartate Amino Transferase 435 U/L (14-36); Bilirubin,Total 0.2 mg/dL (0.2-1.3); Blood Urea Nitrogen 12 mg/dL (7-17); Calcium 7.8 mg/dL (8.4-10.2); Carbon Dioxide 21 mmol/L (22-30); Chloride 111 mmol/L (98-107); Estimated Glomerular Filt Rate 56; Glucose 128 mg/dL (65-110); Potassium 3.4 mmol/L (3.4-5.0); Sodium 143 mmol/L (137-145)
[2022-07-02 06:53] LABS: CRP 11.9 mg/dL (<1.0)
[2022-07-02 08:48] LABS: Hematocrit 25.4 % (37.0-47.0); Hemoglobin 7.2 g/dL (12.0-15.0); Mean Corpuscular HGB Conc 28.3 g/dl (32-36); Mean Corpuscular Hemoglobin 26.8 pg (26-34); Mean Corpuscular Volume 94.4 fl (80-100); Mean Platelet Volume 10.1 fl (7.4-10.4); Platelet Count Result 281 k/mm3 (150-375); Red Blood Count 2.69 M/mm3 (4.2-5.4); Red Cell Distribution Width 19.1 % (11.5-14.5); White Blood Count 4.9 K/mm3 (4.5-10.0)
[2022-07-02 08:57] LABS: Alanine Aminotransferase 134 U/L (6-35); Albumin Level 2.6 g/dL (3.5-5.1); Alkaline Phosphatase 283 U/L (38-126); Aspartate Amino Transferase 445 U/L (14-36); Bilirubin,Total 0.2 mg/dL (0.2-1.3)
[2022-07-02] MEDS: DEXTROSE 5%/0.9% SOD CHL 1,000 ML 100 ML IV CONT (08:57)
[2022-07-02] MEDS: FLUoxetine HCL 20 MG CAPSULE PO (08:58)
[2022-07-02] MEDS: TOPIRAMATE 100 MG TABLET PO ×2 (08:59→18:28)
[2022-07-02] MEDS: MIRABEGRON 25 MG ER TABLET PO (08:59)
[2022-07-02] MEDS: PANTOPRAZOLE SODIUM IV 40 MG VIAL IV PUSH ×2 (08:59→22:08)
[2022-07-02] MEDS: MONTELUKAST SODIUM 10 MG TABLET PO (08:59)
[2022-07-02] MEDS: CALCIUM CARBONATE (OSCAL) 500 MG TABLET PO (08:59)
[2022-07-02] MEDS: UMECLIDINIUM BROMIDE 62.5 MCG ELLIPTA 1 PUFF INHALATION (09:04)
[2022-07-02] MEDS: FLUTICASONE/SALMETEROL 115-21 MCG INHALER 1 PUFF 2 PUFF INHALATION ×2 (09:04→21:08)
--- NOTE | 2022-07-02 12:30 | WPDANESEPPF ---
Anes - Initial Pre Proc Eval Procedure: Operation Date: 07/02/22 13:45 Proposed Procedures p Cystoscopy, Right Ureteroscopy, Possible Right Retrograde Pyelogram, Possible Right Stone Extraction,Possible Right Stent Placement, Possible Holmium Laser - Wilbert Daniel MD <Rigoberto Celeste DO - Last Filed: 07/03/22 10:25> Date/Time: 07/02/22 12:30 <Rigoberto Celeste DO - Last Filed: 07/03/22 10:25> Surgeon: Fredy <Rigoberto Celeste DO - Last Filed: 07/03/22 10:25> Pre Op Diagnosis: Pyelonephritis, Kidney stone <Rigoberto Celeste DO - Last Filed: 07/03/22 10:25> Patient Data Age: 66 Gender: F Height: 1.57 m Weight: 77.9 kg <Rigoberto Celeste DO - Last Filed: 07/03/22 10:25> Last Vital Signs Temp 37.1 C 07/02/22 12:00 Pulse 100 07/02/22 12:00 Resp 18 07/02/22 12:00 BP 103/51 L 07/02/22 12:00 Pulse Ox 97 07/02/22 12:00 O2 Del Method Room Air 07/01/22 20:00 <Rigoberto Celeste, DO - Last Filed: 07/03/22 10:25> Allergies Allergy/AdvReac Type Severity Reaction Status Date / Time Sulfa (Sulfonamide Allergy Severe THROAT Verified 07/02/22 13:03 Antibiotics) SWELLING/TROUBLE BREATHING codeine AdvReac Intermediate Gastrointestinal Verified 07/02/22 13:03 Upset <Rigoberto Celeste DO - Last Filed: 07/03/22 10:25> Home Medications Medication Instructions Recorded Confirmed Type diltiazem HCl 240 mg 240 mg PO QAM 05/23/20 07/01/22 History capsule,extended release 24 hr, controlled (DILT-XR) fluoxetine 20 mg capsule 20 mg PO QAM HOT FLASHES 05/23/20 07/01/22 History calcium carbonate 500 mg calcium 500 mg PO DAILY #90 tabs 08/04/21 07/01/22 Rx (1,250 mg) tablet umeclidinium 62.5 mcg/actuation 1 inh inhalation QAM #3 device 12/17/21 07/01/22 Rx blister powder for inhalation (Incruse Ellipta) ergocalciferol (vitamin D2) 1,250 1,250 mcg PO WEEKLY #12 caps 02/15/22 07/01/22 Rx mcg (50,000 unit) capsule (Vitamin D2) famotidine 40 mg tablet 40 mg PO DAILY PRN Acid Reflux 03/26/22 07/01/22 History omeprazole 40 mg capsule,delayed 40 mg PO BID #180 caps 04/13/22 07/01/22 Rx release mirabegron 25 mg tablet,extended 25 mg PO DAILY #90 tabs 05/10/22 07/01/22 Rx release 24 hr (Myrbetriq) topiramate 100 mg tablet 100 mg PO BID MIGRAINS #180 tabs 05/20/22 07/01/22 Rx montelukast 10 mg tablet 10 mg PO DAILY #90 tabs 06/04/22 07/01/22 Rx levothyroxine 75 mcg tablet 75 mcg PO DAILY #90 tabs 06/21/22 07/01/22 Rx sucralfate 1 gram tablet See Rx Instructions .Route 06/23/22 07/01/22 Rx .COMPLEX #90 tabs fluticasone 250 mcg-salmeterol 50 1 ea inhalation BID 07/01/22 07/01/22 History mcg/dose blistr powdr for inhalation (Advair Diskus) <Rigoberto Celeste, DO - Last Filed: 07/03/22 10:25> Laboratory Tests 07/02/22 07/02/22 07/02/22 05:32 05:32 05:36 WBC 4.9 K/mm3 K/mm3 (4.5-10.0) RBC 2.69 M/mm3 L M/mm3 (4.2-5.4) Hgb 7.2 g/dL L D g/dL (12.0-15.0) Hct 25.4 % L % (37.0-47.0) MCV 94.4 fl fl (80-100) MCH 26.8 pg pg (26-34) MCHC 28.3 g/dl L g/dl (32-36) RDW 19.1 % H % (11.5-14.5) Plt Count 281 k/mm3 k/mm3 (150-375) MPV 10.1 fl fl (7.4-10.4) Sodium 143 mmol/L mmol/L (137-145) Potassium 3.4 mmol/L mmol/L (3.4-5.0) Chloride 111 mmol/L H mmol/L (98-107) Carbon Dioxide 21 mmol/L L mmol/L (22-30) Anion Gap 11 mmol/L mmol/L (8-16) BUN 12 mg/dL mg/dL (7-17) Creatinine 1.00 mg/dL mg/dL (0.7-1.0) Estim Creat Clear Calc Not Reportable Estimated GFR 56 L (59 - ) Glucose 128 mg/dL H mg/dL (65-110) Lactic Acid Calcium 7.8 mg/dL L mg/dL (8.4-10.2) Magnesium 2.0 mg/dL mg/dL (1.6-2.3) Total Bilirubin 0.2 mg/dL
[2022-07-02] MEDS: LACTATED RINGERS 1,000 ML 30 ML IV CONT (13:00)
--- NOTE | 2022-07-02 14:12 | WPDHPUPDATE1 ---
History and Physical Update Update Date/Time: 07/02/22 14:12 History and Physical has been reviewed, including an updated exam of the patient. There are NO changes in the patient's condition. Risks, benefits, and alternatives have been discussed and questions answered. Patient agrees to proceed with procedure.
--- NOTE | 2022-07-02 14:53 | W.PM.PROC2 ---
Procedure Note - Detailed Date of Procedure 07/02/22 Pre-op Diagnosis Pyelonephritis, Kidney stone Post-op Diagnosis Same Procedure Performed cystoscopy, right ureteroscopy with laser lithotripsy of a right ureteral and right renal calculus, stone extraction right ureteral stent placement. Surgeon Wilbert Daniel MD Description of Procedure patient brought the operative suite she has prepped draped in routine sterile fashion while in dorsal lithotomy position after the uneventful induction of a general LMA anesthetic. Cystoscopy is undertaken with a 19 F rigid cystoscope. There was no intravesical foreign body or neoplasm in the mucosa has a normal appearance. A 0.035 in glidewire is advanced into the right renal pelvis under fluoroscopy. The distal ureter was dilated with an 8 F 10 F dilator. Ureteroscopy was 1st undertaken with a short tapered semi-rigid ureteral scope. Her mid ureteral stone is identified, fractured with a 273 micron holmium laser fiber and all fragments removed with a disposable stone basket. I then replaced the rigid scope for a 7.5 F flexible ureteral scope. The stone identified in the right kidney has been fractured into multiple tiny pieces with prior lithotripsy. There was 1 sizable piece which I fractured further with the same holmium laser fiber. This point the scope was removed and a 4.8 F right variable length ureteral stent was positioned with proximal coil in the kidney and distal coil in the bladder.. Urine Output 550 Drains Yes Packing No Pathology Yes Complications No immediate complications
[2022-07-02] MEDS: fentaNYL CITRATE INJ (*CRX) 100 MCG/2 ML VIAL 25 MCG IV PUSH ×4 (15:29→16:02)
[2022-07-02 16:49] LABS: Hematocrit 28.2 % (37.0-47.0)
[2022-07-02] MEDS: SUCRALFATE 1 GM TABLET BY MOUTH ×2 (16:49→22:07)
--- NOTE | 2022-07-02 17:00 | P.PNIM_ITS ---
Progress Note: A&P Assessment and Plan (1) Right ureteral stone: Code(s): N20.1 - Calculus of ureter Status: Acute Assessment and Plan: Presented to outside hospital, found to have retained 7 mm obstructing stone in the mid right ureter following ESWL 1 week prior * Appreciate urology consultation * Patient is status post cystoscopy with right ureteroscopy and laser lithotripsy of right ureteral stone and right renal calculus, stone extraction and right ureteral stent placement * Supportive care. Analgesics available as needed * UA at outside facility not overly concerning for infection with 1+ leuk est, n o nitrates, 0-5 WBC. Patient afebrile, no leukocytosis. Continue IV ceftriaxone #2. Appreciate urology recommendations regarding duration for antibiotics. * Continue with outpatient urology follow-up (2) Acute on chronic anemia: Code(s): D64.9 - Anemia, unspecified Status: Acute Assessment and Plan: Baseline hemoglobin 10.3 with declined to 7.2 today * No active bleeding * Repeat hemoglobin 8.0 * Continue to monitor H& H. Recheck this evening to ensure remaining stable * Transfuse as needed to maintain hemoglobin >7.0 * Stool occult blood test is pending (3) Gastric ulcer: Qualifiers: Gastric ulcer chronicity: unspecified ulcer chronicity Gastric ulcer complication status: unspecified whether hemorrhage or perforation present Qualified Code(s): K25.9 - Gastric ulcer, unspecified as acute or chronic, without hemorrhage or perforation Code(s): K25.9 - Gastric ulcer, unspecified as acute or chronic, without hemorrhage or perforation Status: Acute Assessment and Plan: Patient with pyloric ulcer followed by Gastroenterology * Continue Carafate * Protonix 40 mg b.i.d. * Patient does endorse intermittent coffee-ground emesis secondary to ulcer. No recent episodes and no active bleeding. * Continue outpatient follow-up with GI (4) SVT (supraventricular tachycardia): Code(s): I47.1 - Supraventricular tachycardia Status: Acute Assessment and Plan: Chronic issue. Rate is controlled at this time * Continue diltiazem (5) Chronic obstructive pulmonary disease, unspecified: Code(s): J44.9 - Chronic obstructive pulmonary disease, unspecified Status: Acute Assessment and Plan: No acute issues. * Continue Advair * Albuterol as needed (6) Hypothyroidism (acquired): Code(s): E03.9 - Hypothyroidism, unspecified Status: Acute Assessment and Plan: TSH is within normal limits * Continue levothyroxine (7) Transaminitis: Code(s): R74.01 - Elevation of levels of liver transaminase levels Status: Acute Assessment and Plan: Patient with markedly elevated LFTs * No prior labs to determine chronicity * Will check hepatitis panel * Right upper quadrant ultrasound * Trend LFTs Plan MiraLax, Colace, and Dulcolax suppository for constipation Subjective Date/time seen: 07/02/22 17:00 Interval history: Date of service: 07/02/2022 Mike Brandt is a 66-year-old female with a history of COPD, chronic pain, hypertension, hyperlipidemia, SVT, gastric ulcer, chronic anemia, nephrolithiasis s/p ESWL of right renal calculus on 06/25/2022 who is seen in follow-up for right ureteral stone. Patient is doing okay today. She endorses right back and flank pain which she rates as 7-8/10. She has intermittent hematuria that is orange-pinkish in color. She denies
--- NOTE | 2022-07-02 17:00 | PM.IMPN ---
Progress Note: A&P Assessment and Plan (1) Right ureteral stone: Code(s): N20.1 - Calculus of ureter Status: Acute Assessment and Plan: Presented to outside hospital, found to have retained 7 mm obstructing stone in the mid right ureter following ESWL 1 week prior Appreciate urology consultation Patient is status post cystoscopy with right ureteroscopy and laser lithotripsy of right ureteral stone and right renal calculus, stone extraction and right ureteral stent placement Supportive care. Analgesics available as needed UA at outside facility not overly concerning for infection with 1+ leuk est, no nitrates, 0-5 WBC. Patient afebrile, no leukocytosis. Continue IV ceftriaxone #2. Appreciate urology recommendations regarding duration for antibiotics. Continue with outpatient urology follow-up (2) Acute on chronic anemia: Code(s): D64.9 - Anemia, unspecified Status: Acute Assessment and Plan: Baseline hemoglobin 10.3 with declined to 7.2 today No active bleeding Repeat hemoglobin 8.0 Continue to monitor H& H. Recheck this evening to ensure remaining stable Transfuse as needed to maintain hemoglobin >7.0 Stool occult blood test is pending (3) Gastric ulcer: Qualifiers: Gastric ulcer chronicity: unspecified ulcer chronicity Gastric ulcer complication status: unspecified whether hemorrhage or perforation present Qualified Code(s): K25.9 - Gastric ulcer, unspecified as acute or chronic, without hemorrhage or perforation Code(s): K25.9 - Gastric ulcer, unspecified as acute or chronic, without hemorrhage or perforation Status: Acute Assessment and Plan: Patient with pyloric ulcer followed by Gastroenterology Continue Carafate Protonix 40 mg b.i.d. Patient does endorse intermittent coffee-ground emesis secondary to ulcer. No recent episodes and no active bleeding. Continue outpatient follow-up with GI (4) SVT (supraventricular tachycardia): Code(s): I47.1 - Supraventricular tachycardia Status: Acute Assessment and Plan: Chronic issue. Rate is controlled at this time Continue diltiazem (5) Chronic obstructive pulmonary disease, unspecified: Code(s): J44.9 - Chronic obstructive pulmonary disease, unspecified Status: Acute Assessment and Plan: No acute issues. Continue Advair Albuterol as needed (6) Hypothyroidism (acquired): Code(s): E03.9 - Hypothyroidism, unspecified Status: Acute Assessment and Plan: TSH is within normal limits Continue levothyroxine (7) Transaminitis: Code(s): R74.01 - Elevation of levels of liver transaminase levels Status: Acute Assessment and Plan: Patient with markedly elevated LFTs No prior labs to determine chronicity Will check hepatitis panel Right upper quadrant ultrasound Trend LFTs Plan MiraLax, Colace, and Dulcolax suppository for constipation Subjective Date/time seen: 07/02/22 17:00 Interval history: Date of service: 07/02/2022 Mike Brandt is a 66-year-old female with a history of COPD, chronic pain, hypertension, hyperlipidemia, SVT, gastric ulcer, chronic anemia, nephrolithiasis s/p ESWL of right renal calculus on 06/25/2022 who is seen in follow-up for right ureteral stone. Patient is doing okay today. She endorses right back and flank pain which she rates as 7-8/10. She has intermittent hematuria that is orange-pinkish in color. She denies dysuria, urgency, frequency. She states that she has a pyloric ulcer which causes her to have intermittent coffee-ground emesis. She denies melena or hematochezia. States her last bowel movement was and 1 week ago. She denies abdominal pain, cramping or bloating. No nausea or vomiting. She states she is being evaluated for her gastric ulcer. Denies dizziness, lightheadedness, weakness. Review of Systems Review of Systems: All systems revi
[2022-07-02] MEDS: polyethylene glycoL 3350 17 GM POWD.PACK PO (18:28)
[2022-07-02] MEDS: BISACODYL 10 MG SUPPOSITORY RECTAL (18:28)
[2022-07-02 23:03] LABS: Hematocrit 25.2 % (37.0-47.0)
[2022-07-02 23:10] LABS: Hemoglobin 7.1 g/dL (12.0-15.0)
[2022-07-03] VITALS (9 sets, daily range): BP systolic 100–117; BP diastolic 49–70; PULSE 70–99; RESP 16–20; TEMP 35.9–37; O2SAT 96–100
[2022-07-03 06:21] LABS: Basophils Percent Auto 0.4 % (0.2-1.2); Eosinophils Absolute Auto 0.2 K/mm3 (0-0.3); Eosinophils Percent Auto 3.2 % (0-4.4); Hemoglobin 7.3 g/dL (12.0-15.0); Immature Granulocyte Absolute 0.02 K/mm3 (0.00-0.031); Immature Granulocyte Percent A 0.4 % (0-0.5); Lymphocytes Absolute Auto 0.71 K/mm3 (0.9-3.2); Lymphocytes Percent Auto 15.3 % (18.3-44.2); Mean Corpuscular HGB Conc 28.1 g/dl (32-36); Mean Corpuscular Hemoglobin 26.4 pg (26-34); Mean Corpuscular Volume 93.9 fl (80-100); Mean Platelet Volume 9.2 fl (7.4-10.4); Monocytes Absolute Auto 0.5 K/mm3 (0.1-0.6); Monocytes Percent Auto 10.1 % (2.6-8.5); Neutrophils Absolute Auto 3.3 K/mm3 (1.3-6.7); Neutrophils Percent Auto 70.6 % (45.5-73.1); Platelet Count Result 311 k/mm3 (150-375); Red Blood Count 2.77 M/mm3 (4.2-5.4); Red Cell Distribution Width 18.8 % (11.5-14.5); White Blood Count 4.7 K/mm3 (4.5-10.0)
[2022-07-03] MEDS: HYDROcodone/acetaminophen (*CRX) 5-325 MG TABLET 1 TAB PO ×2 (06:28→13:25)
[2022-07-03] MEDS: ONDANSETRON INJ 4 MG/2 ML VIAL IV PUSH ×3 (06:29→20:20)
[2022-07-03] MEDS: LEVOTHYROXINE SODIUM 75 MCG TABLET PO (06:29)
[2022-07-03 06:43] LABS: Alanine Aminotransferase 103 U/L (6-35); Albumin Level 2.8 g/dL (3.5-5.1); Alkaline Phosphatase 263 U/L (38-126); Anion Gap 11 mmol/L (8-16); Aspartate Amino Transferase 144 U/L (14-36); Bilirubin,Total < 0.1 mg/dL (0.2-1.3); Blood Urea Nitrogen 6 mg/dL (7-17); Calcium 8.3 mg/dL (8.4-10.2); Carbon Dioxide 24 mmol/L (22-30); Chloride 110 mmol/L (98-107); Estimated CRCL calculation 60 ml/min; Estimated Glomerular Filt Rate > 60; Glucose 103 mg/dL (65-110); Potassium 2.7 mmol/L (3.4-5.0); Sodium 145 mmol/L (137-145)
[2022-07-03 07:14] LABS: Hepatitis B Surface Antigen Negative (Negative)
[2022-07-03 07:20] LABS: HAV RESULT Negative (Negative); Hepatitis B Core IgM Result Negative (Negative)
[2022-07-03 07:31] LABS: Hepatitis C Virus Antibody Negative (Negative)
[2022-07-03] MEDS: FLUTICASONE/SALMETEROL 115-21 MCG INHALER 1 PUFF 2 PUFF INHALATION ×2 (07:46→21:35)
[2022-07-03] MEDS: UMECLIDINIUM BROMIDE 62.5 MCG ELLIPTA 1 PUFF INHALATION (07:46)
[2022-07-03] MEDS: POTASSIUM CHLORIDE 20 MEQ TABLET 40 MEQ PO (08:06)
[2022-07-03] MEDS: TOPIRAMATE 100 MG TABLET PO ×2 (08:07→16:59)
[2022-07-03] MEDS: SUCRALFATE 1 GM TABLET BY MOUTH ×4 (08:07→20:21)
[2022-07-03] MEDS: MIRABEGRON 25 MG ER TABLET PO (08:08)
[2022-07-03] MEDS: FLUoxetine HCL 20 MG CAPSULE PO (08:08)
[2022-07-03] MEDS: MONTELUKAST SODIUM 10 MG TABLET PO (08:08)
[2022-07-03] MEDS: CALCIUM CARBONATE (OSCAL) 500 MG TABLET PO (08:08)
[2022-07-03] MEDS: PANTOPRAZOLE SODIUM IV 40 MG VIAL IV PUSH ×2 (08:09→20:20)
[2022-07-03] MEDS: POTASSIUM CHLORIDE INJ 40 MEQ in SODIUM CHLORIDE 0.9% IV 500 ML 130 MEQ IVPB (09:26)
--- NOTE | 2022-07-03 10:25 | WPDANESPN ---
Anes - Prog Note Post-Op Date/Time: 07/03/22 10:25 Cardiovascular status: normal Respiratory status: normal Airway patency: baseline Mental status: baseline Post-Op hydration status: normal Vital Signs: Last Vital Signs Temp 36.3 C L 07/03/22 04:00 Pulse 70 07/03/22 07:47 Resp 16 07/03/22 07:47 BP 117/70 07/03/22 04:00 Pulse Ox 100 07/03/22 04:00 O2 Del Method Room Air 07/02/22 20:00 O2 Flow Rate 8 07/02/22 15:20 Pain Score (VAS): 0 I/O: Intake & Output 07/02/22 07/03/22 07/03/22 23:59 07:59 15:59 Intake Total 670 100 Output Total 540 Balance 130 100 Laboratory Tests 07/03/22 05:39 07/03/22 05:39 07/02/22 07/02/22 07/03/22 16:45 22:57 05:39 WBC 4.7 RBC 2.77 L Hgb 8.0 L 7.1 L 7.3 L Hct 28.2 L 25.2 L 26.0 L MCV 93.9 MCH 26.4 MCHC 28.1 L RDW 18.8 H Plt Count 311 MPV 9.2 Immature Gran % (Auto) 0.4 Neut % (Auto) 70.6 Lymph % (Auto) 15.3 L Hayes % (Auto) 10.1 H Eos % (Auto) 3.2 Baso % (Auto) 0.4 Lymph # (Auto) 0.71 L Hayes # (Auto) 0.5 Eos # (Auto) 0.2 Baso # (Auto) 0.0 Abs Immat Gran (auto) 0.02 Absolute Neuts (auto) 3.3 Absolute Nucleated RBC 0.0 Nucleated RBC % 0.0 Sodium Potassium Chloride Carbon Dioxide Anion Gap BUN Creatinine Estim Creat Clear Calc Estimated GFR Glucose Calcium Magnesium Total Bilirubin AST ALT Alkaline Phosphatase Total Protein Albumin Hepatitis A IgM Ab Hep Bs Antigen Hep B Core IgM Ab Hepatitis C Ab Screen Blood Type Antibody Screen 07/03/22 07/03/22 07/03/22 05:39 05:39 06:13 WBC RBC Hgb Hct MCV MCH MCHC RDW Plt Count MPV Immature Gran % (Auto) Neut % (Auto) Lymph % (Auto) Hayes % (Auto) Eos % (Auto) Baso % (Auto) Lymph # (Auto) Hayes # (Auto) Eos # (Auto) Baso # (Auto) Abs Immat Gran (auto) Absolute Neuts (auto) Absolute Nucleated RBC Nucleated RBC % Sodium 145 Potassium 2.7 L* Chloride 110 H Carbon Dioxide 24 Anion Gap 11 BUN 6 L D Creatinine 0.80 Estim Creat Clear Calc 60 Estimated GFR > 60 Glucose 103 Calcium 8.3 L Magnesium Total Bilirubin < 0.1 L AST 144 H ALT 103 H Alkaline Phosphatase 263 H Total Protein 5.0 L Albumin 2.8 L Hepatitis A IgM Ab Negative Hep Bs Antigen Negative Hep B Core IgM Ab Negative Hepatitis C Ab Screen Negative Blood Type O Positive Antibody Screen Negative 07/03/22 06:13 WBC RBC Hgb Hct MCV MCH MCHC RDW Plt Count MPV Immature Gran % (Auto) Neut % (Auto) Lymph % (Auto) Hayes % (Auto) Eos % (Auto) Baso % (Auto) Lymph # (Auto) Hayes # (Auto) Eos # (Auto) Baso # (Auto) Abs Immat Gran (auto) Absolute Neuts (auto) Absolute Nucleated RBC Nucleated RBC % Sodium Potassium Chloride Carbon Dioxide Anion Gap BUN Creatinine Estim Creat Clear Calc Estimated GFR Glucose Calcium Magnesium 2.0 Total Bilirubin AST ALT Alkaline Phosphatase Total Protein Albumin Hepatitis A IgM Ab Hep Bs Antigen Hep B Core IgM Ab Hepatitis C Ab Screen Blood Type Antibody Screen Post-procedural complaints: none Patient Feedback: Patient satisfied with anesthetic care.
[2022-07-03] MEDS: ACETAMINOPHEN 325 MG TABLET 650 MG PO (14:59)
--- NOTE | 2022-07-03 15:14 | P.PNIM_ITS ---
Progress Note: A&P Assessment and Plan (1) Right ureteral stone: Code(s): N20.1 - Calculus of ureter Status: Acute Assessment and Plan: Presented to outside hospital, found to have retained 7 mm obstructing stone in the mid right ureter following ESWL 1 week prior * Appreciate urology consultation * Patient is status post cystoscopy with right ureteroscopy and laser lithotripsy of right ureteral stone and right renal calculus, stone extraction and right ureteral stent placement on 07/02. Tolerated procedure well. * Supportive care. Analgesics available as needed * UA at outside facility not overly concerning for infection with 1+ leuk est, no nitrates, 0-5 WBC. Patient afebrile, no leukocytosis. No additional signs/symptoms to suggest UTI. Will discontinue IV ceftriaxone * Will need outpatient urology follow-up (2) Acute on chronic anemia: Code(s): D64.9 - Anemia, unspecified Status: Acute Assessment and Plan: Baseline hemoglobin 10.3 with declined to 7.1 this admission * Likely secondary to gastric ulcer * No active bleeding * Continue to monitor H& H. Recheck this afternoon to ensure remaining stable * Transfuse as needed to maintain hemoglobin >7.0 * Stool occult blood test ordered, awaiting collection (3) Gastric ulcer: Qualifiers: Gastric ulcer chronicity: unspecified ulcer chronicity Gastric ulcer complication status: unspecified whether hemorrhage or perforation present Qualified Code(s): K25.9 - Gastric ulcer, unspecified as acute or chronic, without hemorrhage or perforation Code(s): K25.9 - Gastric ulcer, unspecified as acute or chronic, without hemorrhage or perforation Status: Acute Assessment and Plan: Patient with pyloric ulcer being followed by Gastroenterology * Continue Carafate * Protonix 40 mg b.i.d. * Patient does endorse intermittent coffee-ground emesis secondary to ulcer. No recent episodes and no active bleeding. * Continue outpatient follow-up with GI. * She is being referred to surgery for treatment of ulcer. (4) SVT (supraventricular tachycardia): Code(s): I47.1 - Supraventricular tachycardia Status: Chronic Assessment and Plan: Chronic issue. Rate is controlled at this time * Continue diltiazem (5) Chronic obstructive pulmonary disease, unspecified: Code(s): J44.9 - Chronic obstructive pulmonary disease, unspecified Status: Chronic Assessment and Plan: No acute issues. * Continue Advair * Albuterol as needed (6) Hypothyroidism (acquired): Code(s): E03.9 - Hypothyroidism, unspecified Status: Chronic Assessment and Plan: TSH is within normal limits * Continue levothyroxine (7) Transaminitis: Code(s): R74.01 - Elevation of levels of liver transaminase levels Status: Acute Assessment and Plan: Patient with markedly elevated LFTs * No prior labs to determine chronicity * RUQ ultrasound completed today showed mildly dilated intrahepatic bile ducts in the left hepatic lobe in association with a hyperechoic area of unclear significance * Proceed with CT with contrast * Patient is s/p cholecystectomy * Hepatitis panel negative * LFTs improved. Continue to trend Subjective Date/time seen: 07/03/22 15:14 Interval history: Date of service: 07/03/2022 Mike Brandt is a 66-year-old female with a history of COPD, chronic pain, hypertension, hyperlipidemia, SVT, gastric ulcer, chronic anemia, nephrolithiasis
--- NOTE | 2022-07-03 15:14 | PM.IMPN ---
Progress Note: A&P Assessment and Plan (1) Right ureteral stone: Code(s): N20.1 - Calculus of ureter Status: Acute Assessment and Plan: Presented to outside hospital, found to have retained 7 mm obstructing stone in the mid right ureter following ESWL 1 week prior Appreciate urology consultation Patient is status post cystoscopy with right ureteroscopy and laser lithotripsy of right ureteral stone and right renal calculus, stone extraction and right ureteral stent placement on 07/02. Tolerated procedure well. Supportive care. Analgesics available as needed UA at outside facility not overly concerning for infection with 1+ leuk est, no nitrates, 0-5 WBC. Patient afebrile, no leukocytosis. No additional signs/symptoms to suggest UTI. Will discontinue IV ceftriaxone Will need outpatient urology follow-up (2) Acute on chronic anemia: Code(s): D64.9 - Anemia, unspecified Status: Acute Assessment and Plan: Baseline hemoglobin 10.3 with declined to 7.1 this admission Likely secondary to gastric ulcer No active bleeding Continue to monitor H& H. Recheck this afternoon to ensure remaining stable Transfuse as needed to maintain hemoglobin >7.0 Stool occult blood test ordered, awaiting collection (3) Gastric ulcer: Qualifiers: Gastric ulcer chronicity: unspecified ulcer chronicity Gastric ulcer complication status: unspecified whether hemorrhage or perforation present Qualified Code(s): K25.9 - Gastric ulcer, unspecified as acute or chronic, without hemorrhage or perforation Code(s): K25.9 - Gastric ulcer, unspecified as acute or chronic, without hemorrhage or perforation Status: Acute Assessment and Plan: Patient with pyloric ulcer being followed by Gastroenterology Continue Carafate Protonix 40 mg b.i.d. Patient does endorse intermittent coffee-ground emesis secondary to ulcer. No recent episodes and no active bleeding. Continue outpatient follow-up with GI. She is being referred to surgery for treatment of ulcer. (4) SVT (supraventricular tachycardia): Code(s): I47.1 - Supraventricular tachycardia Status: Chronic Assessment and Plan: Chronic issue. Rate is controlled at this time Continue diltiazem (5) Chronic obstructive pulmonary disease, unspecified: Code(s): J44.9 - Chronic obstructive pulmonary disease, unspecified Status: Chronic Assessment and Plan: No acute issues. Continue Advair Albuterol as needed (6) Hypothyroidism (acquired): Code(s): E03.9 - Hypothyroidism, unspecified Status: Chronic Assessment and Plan: TSH is within normal limits Continue levothyroxine (7) Transaminitis: Code(s): R74.01 - Elevation of levels of liver transaminase levels Status: Acute Assessment and Plan: Patient with markedly elevated LFTs No prior labs to determine chronicity RUQ ultrasound completed today showed mildly dilated intrahepatic bile ducts in the left hepatic lobe in association with a hyperechoic area of unclear significance Proceed with CT with contrast Patient is s/p cholecystectomy Hepatitis panel negative LFTs improved. Continue to trend Subjective Date/time seen: 07/03/22 15:14 Interval history: Date of service: 07/03/2022 Mike Brandt is a 66-year-old female with a history of COPD, chronic pain, hypertension, hyperlipidemia, SVT, gastric ulcer, chronic anemia, nephrolithiasis s/p ESWL of right renal calculus on 06/25/2022 who is seen in follow-up for right ureteral stone s/p lithotripsy and stent placement. She is feeling better today. Her pain is better today. She has some mild back and flank discomfort that she rates as 2-310. States significantly. She did yesterday. She denies abdominal pain, cramping or bloating. She could not tell if there was blood in her stool. No episodes of hematemesis. No nausea or vomiting.
[2022-07-03] MEDS: DEXTROSE 5%/0.9% SOD CHL 1,000 ML 100 ML IV CONT (15:18)
[2022-07-03 15:33] LABS: Hematocrit 24.6 % (37.0-47.0)
[2022-07-03 16:39] LABS: Potassium 3.6 mmol/L (3.4-5.0)
[2022-07-03] MEDS: HYDROmorphone HCL INJ (*CRX) 1 MG/ML SYR IV PUSH (20:19)
[2022-07-03] MEDS: DOCUSATE SODIUM 100 MG CAPSULE PO (20:20)
[2022-07-03 22:31] LABS: Hematocrit 30.5 % (37.0-47.0); Hemoglobin 8.9 g/dL (12.0-15.0)
[2022-07-04] MEDS: HYDROmorphone HCL INJ (*CRX) 1 MG/ML SYR IV PUSH ×3 (03:09→17:08)
[2022-07-04] MEDS: LEVOTHYROXINE SODIUM 75 MCG TABLET PO (05:10)
[2022-07-04 06:01] VITALS: BP 124/50; PULSE 88; RESP 18; TEMP 36.3; O2SAT 98
[2022-07-04] MEDS: ONDANSETRON INJ 4 MG/2 ML VIAL IV PUSH ×3 (06:06→18:15)
[2022-07-04 06:37] LABS: Hematocrit 28.3 % (37.0-47.0); Hemoglobin 8.2 g/dL (12.0-15.0); Mean Corpuscular Hemoglobin 26.8 pg (26-34); Mean Corpuscular Volume 92.5 fl (80-100); Mean Platelet Volume 9.9 fl (7.4-10.4); Platelet Count Result 304 k/mm3 (150-375); Red Blood Count 3.06 M/mm3 (4.2-5.4); Red Cell Distribution Width 19.2 % (11.5-14.5); White Blood Count 5.6 K/mm3 (4.5-10.0)
[2022-07-04 06:48] LABS: Alanine Aminotransferase 62 U/L (6-35); Albumin Level 2.8 g/dL (3.5-5.1); Alkaline Phosphatase 210 U/L (38-126); Anion Gap 6 mmol/L (8-16); Aspartate Amino Transferase 43 U/L (14-36); Bilirubin,Total 0.1 mg/dL (0.2-1.3); Blood Urea Nitrogen 6 mg/dL (7-17); Calcium 8.3 mg/dL (8.4-10.2); Carbon Dioxide 22 mmol/L (22-30); Chloride 115 mmol/L (98-107); Estimated CRCL calculation 68 ml/min; Estimated Glomerular Filt Rate > 60; Glucose 108 mg/dL (65-110); Potassium 3.4 mmol/L (3.4-5.0); Sodium 143 mmol/L (137-145)
[2022-07-04] MEDS: UMECLIDINIUM BROMIDE 62.5 MCG ELLIPTA 1 PUFF INHALATION (07:57)
[2022-07-04] MEDS: FLUTICASONE/SALMETEROL 115-21 MCG INHALER 1 PUFF 2 PUFF INHALATION ×2 (07:58→20:59)
[2022-07-04] MEDS: CALCIUM CARBONATE (OSCAL) 500 MG TABLET PO (08:59)
[2022-07-04] MEDS: FLUoxetine HCL 20 MG CAPSULE PO (08:59)
[2022-07-04] MEDS: SUCRALFATE 1 GM TABLET BY MOUTH ×4 (08:59→20:21)
[2022-07-04] MEDS: MIRABEGRON 25 MG ER TABLET PO (08:59)
[2022-07-04] MEDS: MONTELUKAST SODIUM 10 MG TABLET PO (08:59)
[2022-07-04] MEDS: TOPIRAMATE 100 MG TABLET PO ×2 (09:00→17:04)
[2022-07-04] MEDS: polyethylene glycoL 3350 17 GM POWD.PACK PO (09:06)
[2022-07-04] MEDS: PANTOPRAZOLE SODIUM IV 40 MG VIAL IV PUSH ×2 (09:06→20:21)
[2022-07-04 09:10] VITALS: BP 130/70; PULSE 104; RESP 16; TEMP 37.1; O2SAT 97
[2022-07-04] MEDS: DOCUSATE SODIUM 100 MG CAPSULE PO (10:59)
[2022-07-04 12:12] VITALS: BP 119/62; PULSE 97; RESP 16; TEMP 36.6; O2SAT 96
--- NOTE | 2022-07-04 15:13 | P.PNIM_ITS ---
Progress Note: A&P Assessment and Plan (1) Right ureteral stone: Code(s): N20.1 - Calculus of ureter Status: Acute Assessment and Plan: Presented to outside hospital, found to have retained 7 mm obstructing stone in the mid right ureter following ESWL 1 week prior * Appreciate urology consultation * Patient is status post cystoscopy with right ureteroscopy and laser lithotripsy of right ureteral stone and right renal calculus, stone extraction and right ureteral stent placement on 07/02. Tolerated procedure well. * Supportive care. Analgesics available as needed * UA at outside facility not overly concerning for infection with 1+ leuk est, no nitrates, 0-5 WBC. Patient afebrile, no leukocytosis. IV ceftriaxone discontinued on 07/03. Spoke with [facility] in [place] today, report urine culture collected on 07/01 was negative. * Will need outpatient urology follow-up (2) Acute on chronic anemia: Code(s): D64.9 - Anemia, unspecified Status: Acute Assessment and Plan: Baseline hemoglobin 10.3 with declined to 7.0 this admission * Likely secondary to gastric ulcer though no evidence of acute GI bleeding * Transfused 1 unit pRBC on 07/03 * Continue to monitor H&H. Recheck this afternoon to ensure remaining stable * Transfuse as needed to maintain hemoglobin >7.0 * Stool occult blood test ordered, awaiting collection (3) Gastric ulcer: Qualifiers: Gastric ulcer chronicity: unspecified ulcer chronicity Gastric ulcer complication status: unspecified whether hemorrhage or perforation present Qualified Code(s): K25.9 - Gastric ulcer, unspecified as acute or chronic, without hemorrhage or perforation Code(s): K25.9 - Gastric ulcer, unspecified as acute or chronic, without hemorrhage or perforation Status: Acute Assessment and Plan: Patient with pyloric ulcer being followed by Gastroenterology * Continue Carafate * Protonix 40 mg b.i.d. * Patient does endorse intermittent coffee-ground emesis secondary to ulcer. No recent episodes and no active bleeding. * She is being referred to surgery for treatment of ulcer. * Will proceed with GI consultation given acute anemia. No GI services available today but pt can be seen on 07/05 (4) SVT (supraventricular tachycardia): Code(s): I47.1 - Supraventricular tachycardia Status: Chronic Assessment and Plan: Chronic issue. Rate is controlled at this time * Continue diltiazem (5) Chronic obstructive pulmonary disease, unspecified: Code(s): J44.9 - Chronic obstructive pulmonary disease, unspecified Status: Chronic Assessment and Plan: No acute issues. * Continue Advair * Albuterol as needed (6) Hypothyroidism (acquired): Code(s): E03.9 - Hypothyroidism, unspecified Status: Chronic Assessment and Plan: TSH is within normal limits * Continue levothyroxine (7) Transaminitis: Code(s): R74.01 - Elevation of levels of liver transaminase levels Status: Acute Assessment and Plan: Patient with markedly elevated LFTs * RUQ ultrasound completedshowed mildly dilated intrahepatic bile ducts in the left hepatic lobe in association with a hyperechoic area of unclear significance with recommendations for follow up contrast CT * CT of the abdomen/pelvis showed unchanged mild intra and extrahepatic biliary ductal dilation likely related to prior cholecystectomy * Hepatitis panel negative * LFTs trending down, almost near normal * Appreciate GI recommendations
--- NOTE | 2022-07-04 15:13 | PM.IMPN ---
Progress Note: A&P Assessment and Plan (1) Right ureteral stone: Code(s): N20.1 - Calculus of ureter Status: Acute Assessment and Plan: Presented to outside hospital, found to have retained 7 mm obstructing stone in the mid right ureter following ESWL 1 week prior Appreciate urology consultation Patient is status post cystoscopy with right ureteroscopy and laser lithotripsy of right ureteral stone and right renal calculus, stone extraction and right ureteral stent placement on 07/02. Tolerated procedure well. Supportive care. Analgesics available as needed UA at outside facility not overly concerning for infection with 1+ leuk est, no nitrates, 0-5 WBC. Patient afebrile, no leukocytosis. IV ceftriaxone discontinued on 07/03. Spoke with [facility] in [place] today, report urine culture collected on 07/01 was negative. Will need outpatient urology follow-up (2) Acute on chronic anemia: Code(s): D64.9 - Anemia, unspecified Status: Acute Assessment and Plan: Baseline hemoglobin 10.3 with declined to 7.0 this admission Likely secondary to gastric ulcer though no evidence of acute GI bleeding Transfused 1 unit pRBC on 07/03 Continue to monitor H&H. Recheck this afternoon to ensure remaining stable Transfuse as needed to maintain hemoglobin >7.0 Stool occult blood test ordered, awaiting collection (3) Gastric ulcer: Qualifiers: Gastric ulcer chronicity: unspecified ulcer chronicity Gastric ulcer complication status: unspecified whether hemorrhage or perforation present Qualified Code(s): K25.9 - Gastric ulcer, unspecified as acute or chronic, without hemorrhage or perforation Code(s): K25.9 - Gastric ulcer, unspecified as acute or chronic, without hemorrhage or perforation Status: Acute Assessment and Plan: Patient with pyloric ulcer being followed by Gastroenterology Continue Carafate Protonix 40 mg b.i.d. Patient does endorse intermittent coffee-ground emesis secondary to ulcer. No recent episodes and no active bleeding. She is being referred to surgery for treatment of ulcer. Will proceed with GI consultation given acute anemia. No GI services available today but pt can be seen on 07/05 (4) SVT (supraventricular tachycardia): Code(s): I47.1 - Supraventricular tachycardia Status: Chronic Assessment and Plan: Chronic issue. Rate is controlled at this time Continue diltiazem (5) Chronic obstructive pulmonary disease, unspecified: Code(s): J44.9 - Chronic obstructive pulmonary disease, unspecified Status: Chronic Assessment and Plan: No acute issues. Continue Advair Albuterol as needed (6) Hypothyroidism (acquired): Code(s): E03.9 - Hypothyroidism, unspecified Status: Chronic Assessment and Plan: TSH is within normal limits Continue levothyroxine (7) Transaminitis: Code(s): R74.01 - Elevation of levels of liver transaminase levels Status: Acute Assessment and Plan: Patient with markedly elevated LFTs RUQ ultrasound completedshowed mildly dilated intrahepatic bile ducts in the left hepatic lobe in association with a hyperechoic area of unclear significance with recommendations for follow up contrast CT CT of the abdomen/pelvis showed unchanged mild intra and extrahepatic biliary ductal dilation likely related to prior cholecystectomy Hepatitis panel negative LFTs trending down, almost near normal Appreciate GI recommendations Subjective Date/time seen: 07/04/22 15:13 Interval history: Date of service: 07/03/2022 Mike Brandt is a 66-year-old female with a history of COPD, chronic pain, hypertension, hyperlipidemia, SVT, gastric ulcer, chronic anemia, nephrolithiasis s/p ESWL of right renal calculus on 06/25/2022 who is seen in follow-up for right ureteral stone s/p lithotripsy and stent placement. She is doing well tod
[2022-07-04 16:08] LABS: Hematocrit 29.3 % (37.0-47.0); Hemoglobin 8.8 g/dL (12.0-15.0)
[2022-07-04 22:00] VITALS: BP 119/57; PULSE 92; RESP 18; TEMP 36.1; O2SAT 97
[2022-07-05] MEDS: HYDROmorphone HCL INJ (*CRX) 1 MG/ML SYR IV PUSH ×3 (00:06→13:23)
[2022-07-05] MEDS: ONDANSETRON INJ 4 MG/2 ML VIAL IV PUSH ×4 (00:06→18:43)
[2022-07-05 06:00] VITALS: BP 120/64; PULSE 94; RESP 18; TEMP 36.2; O2SAT 96
[2022-07-05] MEDS: LEVOTHYROXINE SODIUM 75 MCG TABLET PO (06:07)
[2022-07-05 06:32] LABS: Hematocrit 29.1 % (37.0-47.0); Hemoglobin 8.6 g/dL (12.0-15.0); Mean Corpuscular HGB Conc 29.6 g/dl (32-36); Mean Corpuscular Hemoglobin 26.7 pg (26-34); Mean Corpuscular Volume 90.4 fl (80-100); Mean Platelet Volume 9.2 fl (7.4-10.4); Platelet Count Result 328 k/mm3 (150-375); Red Blood Count 3.22 M/mm3 (4.2-5.4); Red Cell Distribution Width 18.9 % (11.5-14.5); White Blood Count 6.2 K/mm3 (4.5-10.0)
[2022-07-05 06:45] LABS: Alanine Aminotransferase 46 U/L (6-35); Albumin Level 2.9 g/dL (3.5-5.1); Alkaline Phosphatase 185 U/L (38-126); Anion Gap 8 mmol/L (8-16); Aspartate Amino Transferase 26 U/L (14-36); Bilirubin,Total 0.1 mg/dL (0.2-1.3); Blood Urea Nitrogen 8 mg/dL (7-17); Calcium 8.8 mg/dL (8.4-10.2); Carbon Dioxide 25 mmol/L (22-30); Chloride 110 mmol/L (98-107); Estimated CRCL calculation 60 ml/min; Estimated Glomerular Filt Rate > 60; Glucose 107 mg/dL (65-110); Potassium 3.5 mmol/L (3.4-5.0); Sodium 143 mmol/L (137-145)
[2022-07-05] MEDS: SUCRALFATE 1 GM TABLET BY MOUTH ×4 (08:18→20:29)
[2022-07-05] MEDS: FLUoxetine HCL 20 MG CAPSULE PO (08:19)
[2022-07-05] MEDS: UMECLIDINIUM BROMIDE 62.5 MCG ELLIPTA 1 PUFF INHALATION (08:19)
[2022-07-05] MEDS: MONTELUKAST SODIUM 10 MG TABLET PO (08:19)
[2022-07-05] MEDS: MIRABEGRON 25 MG ER TABLET PO (08:19)
[2022-07-05] MEDS: TOPIRAMATE 100 MG TABLET PO ×2 (08:19→16:40)
[2022-07-05] MEDS: polyethylene glycoL 3350 17 GM POWD.PACK PO (08:20)
[2022-07-05] MEDS: CALCIUM CARBONATE (OSCAL) 500 MG TABLET PO (08:20)
[2022-07-05] MEDS: FLUTICASONE/SALMETEROL 115-21 MCG INHALER 1 PUFF 2 PUFF INHALATION ×2 (08:20→22:30)
[2022-07-05] MEDS: PANTOPRAZOLE SODIUM IV 40 MG VIAL IV PUSH ×2 (08:20→20:28)
[2022-07-05 08:22] VITALS: PULSE 91; RESP 18
--- NOTE | 2022-07-05 09:00 | PM.IMPN ---
Progress Note: A&P Assessment and Plan (1) Right ureteral stone: Code(s): N20.1 - Calculus of ureter Status: Acute Assessment and Plan: Presented to outside hospital, found to have retained 7 mm obstructing stone in the mid right ureter following ESWL 1 week prior Appreciate urology consultation Status post cystoscopy with right ureteroscopy and laser lithotripsy of right ureteral stone and right renal calculus stone extraction and right ureteral stent placement on 07/02. Tolerated procedure well. Supportive care. Analgesics adjusted to PO UA at outside facility not overly concerning for infection with 1+ leuk est, no nitrates, 0-5 WBC. Patient afebrile, no leukocytosis. IV ceftriaxone discontinued on 07/03. Spoke with [facility] in [place] report urine culture collected on 07/01 was negative. Will need outpatient urology follow-up (2) Acute on chronic anemia: Code(s): D64.9 - Anemia, unspecified Status: Acute Assessment and Plan: Current H/H 8.6/29.1 Baseline hemoglobin 10.3 with declined to 7.0 this admission Currently seems to be acute blood loss and reported iron deficient anemia Likely secondary to gastric ulcer though no evidence of acute GI bleeding Follows Dr. Gardiner and gets iron infusions Anemia labs Supplement as indicated Transfused 1 unit pRBC on 07/03 Continue to monitor H&H. Transfuse as needed to maintain hemoglobin >7.0 Stool occult blood test positive on 07/05/22 (3) Gastric ulcer: Qualifiers: Gastric ulcer chronicity: unspecified ulcer chronicity Gastric ulcer complication status: unspecified whether hemorrhage or perforation present Qualified Code(s): K25.9 - Gastric ulcer, unspecified as acute or chronic, without hemorrhage or perforation Code(s): K25.9 - Gastric ulcer, unspecified as acute or chronic, without hemorrhage or perforation Status: Acute Assessment and Plan: Patient with pyloric ulcer being followed by Gastroenterology, and Dr. Anthony a GI surgeon Continue Carafate, add reglan PO Protonix 40 mg b.i.d. Patient does endorse intermittent coffee-ground emesis secondary to ulcer. No recent episodes Will proceed with GI consultation given acute anemia. GI recommend MRCP which is ordered (4) SVT (supraventricular tachycardia): Code(s): I47.1 - Supraventricular tachycardia Status: Chronic Assessment and Plan: Chronic issue. Rate is controlled at this time Continue diltiazem (5) Chronic obstructive pulmonary disease, unspecified: Code(s): J44.9 - Chronic obstructive pulmonary disease, unspecified Status: Chronic Assessment and Plan: No acute issues or exacerbation Continue Advair Albuterol as needed (6) Hypothyroidism (acquired): Code(s): E03.9 - Hypothyroidism, unspecified Status: Chronic Assessment and Plan: TSH is within normal limits Continue levothyroxine (7) Transaminitis: Code(s): R74.01 - Elevation of levels of liver transaminase levels Status: Acute Assessment and Plan: LFTs noted to be elevated 46/185 RUQ ultrasound completed showed mildly dilated intrahepatic bile ducts in the left hepatic lobe in association with a hyperechoic area of unclear significance with recommendations for follow up contrast CT CT of the abdomen/pelvis showed unchanged mild intra and extrahepatic biliary ductal dilation likely related to prior cholecystectomy Hepatitis panel negative Appreciate GI recommendations Subjective Date/time seen: 07/05/22899 Interval history: 07/05/22899 Patient seems to be doing okay. She denies any chest pain, shortness a breath, diarrhea. She did state that she has some right-sided back pain that comes around the whole side. She did have a BM last Tuesday. However she did state that she feels li
--- NOTE | 2022-07-05 09:00 | P.PNIM_ITS ---
Progress Note: A&P Assessment and Plan (1) Right ureteral stone: Code(s): N20.1 - Calculus of ureter Status: Acute Assessment and Plan: * Presented to outside hospital, found to have retained 7 mm obstructing stone in the mid right ureter following ESWL 1 week prior * Appreciate urology consultation * Status post cystoscopy with right ureteroscopy and laser lithotripsy of right ureteral stone and right renal calculus * stone extraction and right ureteral stent placement on 07/02. Tolerated procedure well. * Supportive care. * Analgesics adjusted to PO * UA at outside facility not overly concerning for infection with 1+ leuk est, no nitrates, 0-5 WBC. * Patient afebrile, no leukocytosis. * IV ceftriaxone discontinued on 07/03. * Spoke with [facility] in [place] report urine culture collected on 07/01 was negative. * Will need outpatient urology follow-up (2) Acute on chronic anemia: Code(s): D64.9 - Anemia, unspecified Status: Acute Assessment and Plan: * Current H/H 8.6/29.1 * Baseline hemoglobin 10.3 with declined to 7.0 this admission * Currently seems to be acute blood loss and reported iron deficient anemia * Likely secondary to gastric ulcer though no evidence of acute GI bleeding * Follows Dr. Gardiner and gets iron infusions * Anemia labs * Supplement as indicated * Transfused 1 unit pRBC on 07/03 * Continue to monitor H&H. * Transfuse as needed to maintain hemoglobin >7.0 * Stool occult blood test positive on 07/05/22 (3) Gastric ulcer: Qualifiers: Gastric ulcer chronicity: unspecified ulcer chronicity Gastric ulcer complication status: unspecified whether hemorrhage or perforation present Qualified Code(s): K25.9 - Gastric ulcer, unspecified as acute or chronic, without hemorrhage or perforation Code(s): K25.9 - Gastric ulcer, unspecified as acute or chronic, without hemorrhage or perforation Status: Acute Assessment and Plan: * Patient with pyloric ulcer being followed by Gastroenterology, and Dr. Anthony a GI surgeon * Continue Carafate, add reglan PO * Protonix 40 mg b.i.d. * Patient does endorse intermittent coffee-ground emesis secondary to ulcer. No recent episodes * Will proceed with GI consultation given acute anemia. * GI recommend MRCP which is ordered (4) SVT (supraventricular tachycardia): Code(s): I47.1 - Supraventricular tachycardia Status: Chronic Assessment and Plan: * Chronic issue. Rate is controlled at this time * Continue diltiazem (5) Chronic obstructive pulmonary disease, unspecified: Code(s): J44.9 - Chronic obstructive pulmonary disease, unspecified Status: Chronic Assessment and Plan: * No acute issues or exacerbation * Continue Advair * Albuterol as needed (6) Hypothyroidism (acquired): Code(s): E03.9 - Hypothyroidism, unspecified Status: Chronic Assessment and Plan: TSH is within normal limits * Continue levothyroxine (7) Transaminitis: Code(s): R74.01 - Elevation of levels of liver transaminase levels Status: Acute Assessment and Plan: * LFTs noted to be elevated 46/185 * RUQ ultrasound completed showed mildly dilated intrahepatic bile ducts in the left hepatic lobe in association with a hyperechoic area of unclear significance with recommendations for follow up contrast CT * CT of the abdomen/pelvis
[2022-07-05 12:28] LABS: IFOB Positive Control Positive; Immunochemical Fecal Occult Bl Positive (N)
[2022-07-05 14:00] VITALS: BP 119/69; PULSE 97; RESP 14; TEMP 36.5; O2SAT 95
--- NOTE | 2022-07-05 17:03 | WPDGICN ---
Assessment and Plan Assessment and plan (1) Transaminitis: Code(s): R74.01 - Elevation of levels of liver transaminase levels Status: Acute Assessment and Plan: her enzymes are trending down. Alkaline phosphatase is still elevated at 185. It might be reasonable to perform MRCP to be sure there is no common bile duct issue. (2) Gastric ulcer: Qualifiers: Gastric ulcer chronicity: unspecified ulcer chronicity Gastric ulcer complication status: unspecified whether hemorrhage or perforation present Qualified Code(s): K25.9 - Gastric ulcer, unspecified as acute or chronic, without hemorrhage or perforation Code(s): K25.9 - Gastric ulcer, unspecified as acute or chronic, without hemorrhage or perforation Status: Acute Assessment and Plan: She has referral to see a surgeon in [facility]. she states that that surgeon may refer her to somebody else in [place]. Her ulcer bothers her every day with not only given her pain but also nausea. She vomited again this afternoon. (3) Right ureteral stone: Code(s): N20.1 - Calculus of ureter Status: Acute Assessment and Plan: Status post the ES WL, and subsequent stenting, followed by Dr. Daniel (4) Acute on chronic anemia: Code(s): D64.9 - Anemia, unspecified Status: Acute Assessment and Plan: stable GI Consult Note Consult date/time: 07/05/22 17:03 HPI: Mike Brandt is a 66 year old female who was admitted several days ago because of an obstructing kidney stone causing a great deal of pain. She ultimately underwent stent placement because the stones which had been fragmented by ESWL, would not pass. She has known have a large gastric ulcer at her gastroenterostomy, status post bariatric surgery, and she had appointment to see a surgeon in [place], but unfortunately missed that appointment due to this present illness. That surgery is going to decide what he will do the resection or Refer her to [place]. for the past 3 weeks she has been vomiting every day. She is nauseated and then vomits explosively. She states that she has Zofran but is not sure she keeps it down. She does not have the ODT tablets. We were asked to see her at this time because of abnormal liver function studies. Her alkaline phosphatase on admission was 283 but has come down to 185. Bilirubin is normal at 0.1 and AST which was elevated is now down to normal. She is a chronically dilated bile duct according to imaging. She does not recall ever having had pancreatitis. Review of Systems Review of Systems: All systems reviewed & are unremarkable except as noted in HPI and below [facility] Past Medical History Medical History Abnormal mammogram Adenomatous colon polyp Asthma Chronic abdominal wound infection Chronic abdominal wound infection Chronic obstructive pulmonary disease, unspecified Chronic pain disorder COVID-19 Encounter for HCV screening test for low risk patient Essential (primary) hypertension Gastric ulcer Gastroesophageal reflux disease Hyperlipidemia, unspecified Impaired glucose tolerance (oral) Left wrist pain Migraine Nausea Postmenopausal Postoperative intra-abdominal abscess Right sided sciatica SVT (supraventricular tachycardia) Uterine bleeding, dysfunctional Surgical History Surgical History Bariatric surgery status History of gastric bypass Hx of abdominal surgery the patient stated she had a triple hernia repair. She had mesh placed in her abdomen. It she had 6-7 surgeries on her abdomen to remove the mesh and she also had a colectomy and a portion of her liver removed. Hx of cholecystectomy Family History Family History Sibling Hypertension Father Acute myocardial infarction, Onset Age
[2022-07-05] MEDS: METOCLOPRAMIDE HCL 10 MG/10 ML SOLN UDC 5 MG PO ×2 (17:12→20:27)
[2022-07-05 17:20] LABS: Lipase 51 U/L (23-300)
[2022-07-05 20:00] VITALS: PULSE 108; RESP 16; O2SAT 99
[2022-07-05] MEDS: HYDROcodone/acetaminophen (*CRX) 5-325 MG TABLET 1 TAB PO (20:26)
[2022-07-05 22:00] VITALS: BP 117/59; PULSE 108; RESP 16; TEMP 37.1; O2SAT 99
[2022-07-06] MEDS: HYDROcodone/acetaminophen (*CRX) 5-325 MG TABLET 1 TAB PO ×5 (02:43→22:50)
[2022-07-06] MEDS: ONDANSETRON INJ 4 MG/2 ML VIAL IV PUSH ×3 (02:43→16:58)
[2022-07-06 06:06] VITALS: BP 132/82; PULSE 101; RESP 16; TEMP 36.7; O2SAT 96
[2022-07-06] MEDS: FLUTICASONE/SALMETEROL 115-21 MCG INHALER 1 PUFF 2 PUFF INHALATION ×2 (07:31→20:00)
[2022-07-06] MEDS: UMECLIDINIUM BROMIDE 62.5 MCG ELLIPTA 1 PUFF INHALATION (07:31)
[2022-07-06 07:37] LABS: Basophils Percent Auto 0.3 % (0.2-1.2); Eosinophils Absolute Auto 0.2 K/mm3 (0-0.3); Hematocrit 29.5 % (37.0-47.0); Hemoglobin 8.9 g/dL (12.0-15.0); Immature Granulocyte Absolute 0.03 K/mm3 (0.00-0.031); Immature Granulocyte Percent A 0.4 % (0-0.5); Lymphocytes Absolute Auto 0.81 K/mm3 (0.9-3.2); Lymphocytes Percent Auto 11.1 % (18.3-44.2); Mean Corpuscular HGB Conc 30.2 g/dl (32-36); Mean Corpuscular Hemoglobin 26.3 pg (26-34); Mean Corpuscular Volume 87.3 fl (80-100); Monocytes Absolute Auto 0.7 K/mm3 (0.1-0.6); Monocytes Percent Auto 9.2 % (2.6-8.5); Neutrophils Absolute Auto 5.5 K/mm3 (1.3-6.7); Platelet Count Result 325 k/mm3 (150-375); Red Blood Count 3.38 M/mm3 (4.2-5.4); Red Cell Distribution Width 18.7 % (11.5-14.5); White Blood Count 7.3 K/mm3 (4.5-10.0)
[2022-07-06 07:49] LABS: Alanine Aminotransferase 35 U/L (6-35); Albumin Level 3.1 g/dL (3.5-5.1); Alkaline Phosphatase 178 U/L (38-126); Anion Gap 9 mmol/L (8-16); Aspartate Amino Transferase 22 U/L (14-36); Bilirubin,Total 0.3 mg/dL (0.2-1.3); Blood Urea Nitrogen 11 mg/dL (7-17); Calcium 9.1 mg/dL (8.4-10.2); Carbon Dioxide 25 mmol/L (22-30); Chloride 108 mmol/L (98-107); Estimated CRCL calculation 60 ml/min; Estimated Glomerular Filt Rate > 60; Glucose 107 mg/dL (65-110); Magnesium 1.8 mg/dL (1.6-2.3); Potassium 3.4 mmol/L (3.4-5.0); Sodium 142 mmol/L (137-145)
[2022-07-06 07:57] LABS: Transferrin 231 mg/dL (206-381)
[2022-07-06] MEDS: PANTOPRAZOLE SODIUM IV 40 MG VIAL IV PUSH ×2 (08:20→21:28)
[2022-07-06] MEDS: FLUoxetine HCL 20 MG CAPSULE PO (08:26)
[2022-07-06] MEDS: CALCIUM CARBONATE (OSCAL) 500 MG TABLET PO (08:26)
[2022-07-06] MEDS: LEVOTHYROXINE SODIUM 75 MCG TABLET PO (08:26)
[2022-07-06 08:27] LABS: Iron 26 ug/dL (37-170)
[2022-07-06] MEDS: MONTELUKAST SODIUM 10 MG TABLET PO (08:27)
[2022-07-06] MEDS: MIRABEGRON 25 MG ER TABLET PO (08:27)
[2022-07-06] MEDS: TOPIRAMATE 100 MG TABLET PO ×2 (08:27→16:54)
[2022-07-06] MEDS: DOCUSATE SODIUM 100 MG CAPSULE PO ×2 (08:29→21:28)
[2022-07-06 08:36] LABS: Percent Iron Saturation 8 % (20-50)
[2022-07-06 08:59] LABS: Folic Acid 11.1 ng/mL (2.76->20); Vitamin B12 > 1000.0 pg/mL (239-931)
--- NOTE | 2022-07-06 10:15 | PM.IMPN ---
Progress Note: A&P Assessment and Plan (1) Right ureteral stone: Code(s): N20.1 - Calculus of ureter Status: Acute Assessment and Plan: Presented to outside hospital, found to have retained 7 mm obstructing stone in the mid right ureter following ESWL 1 week prior Appreciate urology consultation Status post cystoscopy with right ureteroscopy and laser lithotripsy of right ureteral stone and right renal calculus stone extraction and right ureteral stent placement on 07/02. Tolerated procedure well. Supportive care. Analgesics adjusted to PO UA at outside facility not overly concerning for infection with 1+ leuk est, no nitrates, 0-5 WBC. Patient afebrile, no leukocytosis. IV ceftriaxone discontinued on 07/03. Spoke with [facility] in [place] report urine culture collected on 07/01 was negative. Will need outpatient urology follow-up (2) Acute on chronic anemia: Code(s): D64.9 - Anemia, unspecified Status: Acute Assessment and Plan: Current H/H 8.6/29.1 Baseline hemoglobin 10.3 with declined to 7.0 this admission Currently seems to be acute blood loss and reported iron deficient anemia Likely secondary to gastric ulcer though no evidence of acute GI bleeding Follows Dr. Gardiner and gets iron infusions Anemia labs Iron 26, TIBC 310, % saturation 8, transferrin 231, ferritin 36.5, B12 greater than a 1000, folate 11.1 start ferrous sulfate 325 b.i.d. continue Colace and MiraLax suppository p.r.n. Transfused 1 unit pRBC on 07/03 Continue to monitor H&H. Transfuse as needed to maintain hemoglobin >7.0 Stool occult blood test positive on 07/05/22 (3) Gastric ulcer: Qualifiers: Gastric ulcer chronicity: unspecified ulcer chronicity Gastric ulcer complication status: unspecified whether hemorrhage or perforation present Qualified Code(s): K25.9 - Gastric ulcer, unspecified as acute or chronic, without hemorrhage or perforation Code(s): K25.9 - Gastric ulcer, unspecified as acute or chronic, without hemorrhage or perforation Status: Acute Assessment and Plan: Patient with pyloric ulcer being followed by Gastroenterology, and Dr. Anthony a GI surgeon Continue Carafate, add reglan PO Protonix 40 mg b.i.d. Patient does endorse intermittent coffee-ground emesis secondary to ulcer. No recent episodes Will proceed with GI consultation given acute anemia. GI recommend MRCP which is ordered (4) SVT (supraventricular tachycardia): Code(s): I47.1 - Supraventricular tachycardia Status: Chronic Assessment and Plan: Chronic issue. Rate is controlled at this time Continue diltiazem (5) Chronic obstructive pulmonary disease, unspecified: Code(s): J44.9 - Chronic obstructive pulmonary disease, unspecified Status: Chronic Assessment and Plan: No acute issues or exacerbation Continue Advair Albuterol as needed (6) Hypothyroidism (acquired): Code(s): E03.9 - Hypothyroidism, unspecified Status: Chronic Assessment and Plan: TSH is within normal limits Continue levothyroxine (7) Transaminitis: Code(s): R74.01 - Elevation of levels of liver transaminase levels Status: Resolved Assessment and Plan: LFTs normal at 22/35 RUQ ultrasound completed showed mildly dilated intrahepatic bile ducts in the left hepatic lobe in association with a hyperechoic area of unclear significance with recommendations for follow up contrast CT CT of the abdomen/pelvis showed unchanged mild intra and extrahepatic biliary ductal dilation likely related to prior cholecystectomy Hepatitis panel negative Appreciate GI recommendations Time Spent With Patient Time: [address] Anthony about current condition Time with patient: Greater than 35 minutes Subjective Date/time seen: 07/06/22 10:15
--- NOTE | 2022-07-06 10:15 | P.PNIM_ITS ---
Progress Note: A&P Assessment and Plan (1) Right ureteral stone: Code(s): N20.1 - Calculus of ureter Status: Acute Assessment and Plan: * Presented to outside hospital, found to have retained 7 mm obstructing stone in the mid right ureter following ESWL 1 week prior * Appreciate urology consultation * Status post cystoscopy with right ureteroscopy and laser lithotripsy of right ureteral stone and right renal calculus * stone extraction and right ureteral stent placement on 07/02. Tolerated procedure well. * Supportive care. * Analgesics adjusted to PO * UA at outside facility not overly concerning for infection with 1+ leuk est, no nitrates, 0-5 WBC. * Patient afebrile, no leukocytosis. * IV ceftriaxone discontinued on 07/03. * Spoke with [facility] in [place] report urine culture collected on 07/01 was negative. * Will need outpatient urology follow-up (2) Acute on chronic anemia: Code(s): D64.9 - Anemia, unspecified Status: Acute Assessment and Plan: * Current H/H 8.6/29.1 * Baseline hemoglobin 10.3 with declined to 7.0 this admission * Currently seems to be acute blood loss and reported iron deficient anemia * Likely secondary to gastric ulcer though no evidence of acute GI bleeding * Follows Dr. Gardiner and gets iron infusions * Anemia labs Iron 26, TIBC 310, % saturation 8, transferrin 231, ferritin 36.5, B12 greater than a 1000, folate 11.1 * start ferrous sulfate 325 b.i.d. * continue Colace and MiraLax suppository p.r.n. * Transfused 1 unit pRBC on 07/03 * Continue to monitor H&H. * Transfuse as needed to maintain hemoglobin >7.0 * Stool occult blood test positive on 07/05/22 (3) Gastric ulcer: Qualifiers: Gastric ulcer chronicity: unspecified ulcer chronicity Gastric ulcer complication status: unspecified whether hemorrhage or perforation present Qualified Code(s): K25.9 - Gastric ulcer, unspecified as acute or chronic, without hemorrhage or perforation Code(s): K25.9 - Gastric ulcer, unspecified as acute or chronic, without hemorrhage or perforation Status: Acute Assessment and Plan: * Patient with pyloric ulcer being followed by Gastroenterology, and Dr. Anthony a GI surgeon * Continue Carafate, add reglan PO * Protonix 40 mg b.i.d. * Patient does endorse intermittent coffee-ground emesis secondary to ulcer. No recent episodes * Will proceed with GI consultation given acute anemia. * GI recommend MRCP which is ordered (4) SVT (supraventricular tachycardia): Code(s): I47.1 - Supraventricular tachycardia Status: Chronic Assessment and Plan: * Chronic issue. Rate is controlled at this time * Continue diltiazem (5) Chronic obstructive pulmonary disease, unspecified: Code(s): J44.9 - Chronic obstructive pulmonary disease, unspecified Status: Chronic Assessment and Plan: * No acute issues or exacerbation * Continue Advair * Albuterol as needed (6) Hypothyroidism (acquired): Code(s): E03.9 - Hypothyroidism, unspecified Status: Chronic Assessment and Plan: TSH is within normal limits * Continue levothyroxine (7) Transaminitis: Code(s): R74.01 - Elevation of levels of liver transaminase levels Status: Resolved Assessment and Plan: * LFTs normal at 22/35 * RUQ ultrasound completed showed mildly dilated intrahepatic bile ducts in the l
--- NOTE | 2022-07-06 11:27 | PCNFU ---
Nutrition Follow-Up Complete: Inadequate oral intake related to pain, nausea, vomiting as evidenced by patient report of poor appetite, vomiting, and weight loss 10 lb/2 weeks. Goal:Advance to PO intake as medically able. Pt is not meeting goal at this time. Continue with same goal. Pt current nutrition is NPO, pt going for a MRCP. Nutrition recommendation: Resume diet when appropriate Last recorded weight is 77.9 kg - stable. Bowel Motility: +BM 07/05 Labs Reviewed: Hgb:8.9, HCT:29.5, Alb:3.1 Meds Noted:protonix, zofran Skin: WNL Additional Notes: Pt was on a regular diet with 25-50% intake, reported some improvement. NPO today for a procedure. Recommend to resume diet post procedure. Follow diet advancement, intakes, weights, labs Follow up in 3 days
[2022-07-06 13:50] VITALS: BP 135/66; PULSE 86; RESP 18; TEMP 35.9; O2SAT 99
--- NOTE | 2022-07-06 14:15 | WPDGIPROGNO ---
Progress Note: A&P Assessment and Plan (1) Gastric ulcer: Qualifiers: Gastric ulcer chronicity: unspecified ulcer chronicity Gastric ulcer complication status: unspecified whether hemorrhage or perforation present Qualified Code(s): K25.9 - Gastric ulcer, unspecified as acute or chronic, without hemorrhage or perforation Code(s): K25.9 - Gastric ulcer, unspecified as acute or chronic, without hemorrhage or perforation Status: Acute Assessment and Plan: persistent ulcer after bariatric surgery, patient is planning to see soon bariatric surgeon she is using zofran in daily basis continue with ppi ok to resume diet as tolerated (2) Bariatric surgery status: Code(s): Z98.84 - Bariatric surgery status Status: Acute (3) Nausea: Code(s): R11.0 - Nausea Status: Acute Assessment and Plan: chronic (4) Right ureteral stone: Code(s): N20.1 - Calculus of ureter Status: Acute Assessment and Plan: treated (5) Acute on chronic anemia: Code(s): D64.9 - Anemia, unspecified Status: Acute Assessment and Plan: stable (6) Transaminitis: Code(s): R74.01 - Elevation of levels of liver transaminase levels Status: Acute Assessment and Plan: MRCP reviewed, no choledocholithiasis, s/p cholecystectomy trending down Subjective Date/time seen: 07/06/22 14:15 Interval history: still with similar pain in lumbar area and nausea, she just completed MRCP. Review of Systems Review of Systems: All systems reviewed & are unremarkable except as noted in HPI and below Exam Const: General: comfortable and alert Nutritional Appearance: average body habitus Orientation/consciousness: patient oriented x3 HENMT: Mouth: Yes moist mucous membranes Eyes: General: appearance normal, both eyes and all related structures Neck: Neck: supple Resp: Auscultation: clear to auscultation bilaterally Cardio: Rhythm: regular rhythm GI: GI Palp: Yes Soft to palpation, Yes Tenderness to palpation present (GI) ( Tender epigastric area), No Guarding due to palpation present (GI) and No Ascites present Auscultation: normal bowel sounds Skin: General skin exam: normal color Neuro: General: patient oriented x3 Speech: normal speech Extrem: General: normal to inspection Psych: Mental Status: mental status grossly normal Objective Data Vital Signs Vital Signs: Vital Signs - 24 hr 07/05/22 22:00 07/05/22 20:00 07/06/22 06:06 Temperature 98.7 F 98.0 F Pulse Rate 108 H 108 H 101 H Respiratory Rate 16 16 16 Blood Pressure 117/59 L 132/82 Pulse Oximetry 99 99 96 Oxygen Delivery Room Air 07/06/22 08:30 07/06/22 13:50 Temperature 96.7 F L Pulse Rate 86 Respiratory Rate 18 Blood Pressure 135/66 Pulse Oximetry 99 Oxygen Delivery Room Air Intake/Output Intake/Output: Intake & Output 07/03/22 07/04/22 07/05/22 07/06/22 23:59 23:59 23:59 23:59 Intake Total 1720 2570 2680 120 Output Total 1000 2700 900 1100 Balance 720 -130 1780 -980 Meds/Results Medications: Active Medications Generic Name Dose Route Start Last Admin Trade Name Freq PRN Reason Stop Dose Admin Acetaminophen 650 mg 07/02/22 16:25 07/03/22 14:59 Acetaminophen 325 Mg Tablet PO 650 mg Q4H PRN Administration Pain 1-3 Hydrocodone Bitart/Acetaminophen 1 tab 07/05/22 15:48 07/06/22 12:53 Hydrocodone/Acetaminophen (*Crx) 5-325 Mg Tablet PO 1 tab Q4H PRN Administration Pain Rated 4-10 Albuterol 2.5 mg 07/01/22 21:55 Albuterol Sulfate Neb 2.5 Mg/3 Ml Inh INHALATION Q4HRT PRN Shortness Of Breath Bisacodyl 10 mg 07/03/22 09:00 Bisacodyl 10 Mg Suppository RECTAL QAM PRN Constipation Calcium Carbonate 500 mg 07/02/22 09:00 07/06/22 08:26 Calcium Carbonate (Oscal) 500 Mg Tablet PO 500 mg DAILY DAMION Administration Diltiazem HCl 240 mg 07/02/22 09:00 07/06/22 08:
[2022-07-06] MEDS: polyethylene glycoL 3350 17 GM POWD.PACK PO (15:05)
[2022-07-06] MEDS: SUCRALFATE 1 GM TABLET BY MOUTH ×3 (15:05→21:28)
[2022-07-06] MEDS: METOCLOPRAMIDE HCL 10 MG/10 ML SOLN UDC 5 MG PO ×3 (15:27→21:27)
[2022-07-06] MEDS: FERROUS SULFATE 324 MG TABLET PO (16:53)
[2022-07-06 20:00] VITALS: PULSE 83; RESP 16; O2SAT 97
[2022-07-06 22:05] VITALS: BP 118/66; PULSE 83; RESP 16; TEMP 37; O2SAT 97
[2022-07-07] MEDS: ONDANSETRON INJ 4 MG/2 ML VIAL IV PUSH (05:56)
[2022-07-07] MEDS: HYDROcodone/acetaminophen (*CRX) 5-325 MG TABLET 1 TAB PO ×4 (05:56→20:27)
[2022-07-07 06:00] VITALS: BP 121/65; PULSE 92; RESP 16; TEMP 36.3; O2SAT 100
[2022-07-07 06:29] LABS: Basophils Percent Auto 0.3 % (0.2-1.2); Eosinophils Absolute Auto 0.2 K/mm3 (0-0.3); Hematocrit 28.3 % (37.0-47.0); Hemoglobin 8.2 g/dL (12.0-15.0); Immature Granulocyte Absolute 0.03 K/mm3 (0.00-0.031); Immature Granulocyte Percent A 0.5 % (0-0.5); Lymphocytes Absolute Auto 0.89 K/mm3 (0.9-3.2); Lymphocytes Percent Auto 14.1 % (18.3-44.2); Mean Corpuscular Hemoglobin 26.5 pg (26-34); Mean Corpuscular Volume 91.3 fl (80-100); Mean Platelet Volume 9.3 fl (7.4-10.4); Monocytes Absolute Auto 0.6 K/mm3 (0.1-0.6); Monocytes Percent Auto 8.9 % (2.6-8.5); Neutrophils Absolute Auto 4.6 K/mm3 (1.3-6.7); Neutrophils Percent Auto 73.2 % (45.5-73.1); Platelet Count Result 336 k/mm3 (150-375); Red Cell Distribution Width 18.6 % (11.5-14.5); White Blood Count 6.3 K/mm3 (4.5-10.0)
[2022-07-07 06:38] LABS: Alanine Aminotransferase 26 U/L (6-35); Alkaline Phosphatase 136 U/L (38-126); Anion Gap 12 mmol/L (8-16); Aspartate Amino Transferase 18 U/L (14-36); Bilirubin,Total < 0.1 mg/dL (0.2-1.3); Blood Urea Nitrogen 13 mg/dL (7-17); Carbon Dioxide 26 mmol/L (22-30); Chloride 106 mmol/L (98-107); Estimated CRCL calculation 60 ml/min; Estimated Glomerular Filt Rate > 60; Glucose 116 mg/dL (65-110); Magnesium 1.8 mg/dL (1.6-2.3); Potassium 3.4 mmol/L (3.4-5.0); Sodium 144 mmol/L (137-145)
[2022-07-07] MEDS: METOCLOPRAMIDE HCL 10 MG/10 ML SOLN UDC 5 MG PO ×3 (06:54→16:19)
[2022-07-07] MEDS: LEVOTHYROXINE SODIUM 75 MCG TABLET PO (06:55)
[2022-07-07] MEDS: SUCRALFATE 1 GM TABLET BY MOUTH ×4 (06:56→20:25)
[2022-07-07 07:07] LABS: Anisocytosis 2+ (NORMAL); Hypochromasia 1+ (NORMAL); Ovalocytes 1+ (NORMAL); Platelet Estimate Adequate (Adequate)
[2022-07-07 07:21] LABS: Schistocytes None Seen (NORMAL)
[2022-07-07] MEDS: FLUoxetine HCL 20 MG CAPSULE PO (09:40)
[2022-07-07] MEDS: TOPIRAMATE 100 MG TABLET PO ×2 (09:40→17:01)
[2022-07-07] MEDS: MONTELUKAST SODIUM 10 MG TABLET PO (09:40)
[2022-07-07] MEDS: MIRABEGRON 25 MG ER TABLET PO (09:40)
[2022-07-07] MEDS: DOCUSATE SODIUM 100 MG CAPSULE PO ×2 (09:40→20:24)
[2022-07-07] MEDS: FERROUS SULFATE 324 MG TABLET PO ×2 (09:40→17:01)
[2022-07-07] MEDS: PANTOPRAZOLE SODIUM IV 40 MG VIAL IV PUSH (09:41)
[2022-07-07] MEDS: FLUTICASONE/SALMETEROL 115-21 MCG INHALER 1 PUFF 2 PUFF INHALATION ×2 (10:46→20:59)
[2022-07-07] MEDS: UMECLIDINIUM BROMIDE 62.5 MCG ELLIPTA 1 PUFF INHALATION (10:46)
[2022-07-07] MEDS: CALCIUM CARBONATE (OSCAL) 500 MG TABLET PO (10:52)
[2022-07-07 14:00] VITALS: BP 117/67; PULSE 98; RESP 14; TEMP 36.5; O2SAT 97
[2022-07-07] MEDS: ONDANSETRON HCL ODT 4 MG TABLET PO (16:18)
--- NOTE | 2022-07-07 17:07 | P.PNIM_ITS ---
Progress Note: A&P Assessment and Plan (1) Right ureteral stone: Code(s): N20.1 - Calculus of ureter Status: Acute Assessment and Plan: Presented to outside hospital, found to have retained 7 mm obstructing stone in the mid right ureter following ESWL 1 week prior * Appreciate urology consultation * Status post cystoscopy with right ureteroscopy and laser lithotripsy of right ureteral stone and right renal calculus, stone extraction and right ureteral stent placement on 07/02. Tolerated procedure well. * Supportive care. Analgesics as needed * Urine culture at outside facility negative . * Will need outpatient urology follow-up (2) Acute on chronic anemia: Code(s): D64.9 - Anemia, unspecified Status: Acute Assessment and Plan: Baseline hemoglobin 10.3 with declined to 7.0 this admission * Acute blood loss secondary to gastric ulcer on chronic iron deficient anemia * Transfused 1 unit pRBC on 07/03 * Follows Dr. Gardiner and gets iron infusions * Anemia labs Iron 26, TIBC 310, % saturation 8, transferrin 231, ferritin 36.5, B12 greater than a 1000, folate 11.1 * Continue ferrous sulfate 325 b.i.d. * Continue to monitor H&H. * Transfuse as needed to maintain hemoglobin >7.0 * Stool occult blood test positive on 07/05/22 * Appreciate GI consultation (3) Gastric ulcer: Qualifiers: Gastric ulcer chronicity: unspecified ulcer chronicity Gastric ulcer complication status: unspecified whether hemorrhage or perforation present Qualified Code(s): K25.9 - Gastric ulcer, unspecified as acute or chronic, without hemorrhage or perforation Code(s): K25.9 - Gastric ulcer, unspecified as acute or chronic, without hemorrhage or perforation Status: Acute Assessment and Plan: Patient with pyloric ulcer being followed by Gastroenterology, and Dr. Anthony a GI surgeon * Continue Carafate * Protonix 40 mg b.i.d. * Patient does endorse intermittent coffee-ground emesis secondary to ulcer. No recent episodes * Appreciate GI consultation. * She has been referred to surgery for treatment of ulcer (4) Transaminitis: Code(s): R74.01 - Elevation of levels of liver transaminase levels Status: Resolved Assessment and Plan: resolved. Patient with markedly elevated LFTs on admission * RUQ ultrasound completed showed mildly dilated intrahepatic bile ducts in the left hepatic lobe in association with a hyperechoic area of unclear significance with recommendations for follow up contrast CT * CT of the abdomen/pelvis showed unchanged mild intra and extrahepatic biliary ductal dilation likely related to prior cholecystectomy * MRCP reports stable intrahepatic and extrahepatic biliary duct dilatation without choledocholithiasis * Hepatitis panel negative * Appreciate GI consultation (5) SVT (supraventricular tachycardia): Code(s): I47.1 - Supraventricular tachycardia Status: Chronic Assessment and Plan: Chronic issue. Rate is controlled at this time * Continue diltiazem (6) Chronic obstructive pulmonary disease, unspecified: Code(s): J44.9 - Chronic obstructive pulmonary disease, unspecified Status: Chronic Assessment and Plan: No acute issues or exacerbation * Continue Advair * Albuterol as needed (7) Hypothyroidism (acquired): Code(s): E03.9 - Hypothyroidism, unspecified Status: Chronic Assessment and Plan: TSH is within normal limits * Continue levothyroxine Subjective Anand
--- NOTE | 2022-07-07 17:07 | PM.IMPN ---
Progress Note: A&P Assessment and Plan (1) Right ureteral stone: Code(s): N20.1 - Calculus of ureter Status: Acute Assessment and Plan: Presented to outside hospital, found to have retained 7 mm obstructing stone in the mid right ureter following ESWL 1 week prior Appreciate urology consultation Status post cystoscopy with right ureteroscopy and laser lithotripsy of right ureteral stone and right renal calculus, stone extraction and right ureteral stent placement on 07/02. Tolerated procedure well. Supportive care. Analgesics as needed Urine culture at outside facility negative . Will need outpatient urology follow-up (2) Acute on chronic anemia: Code(s): D64.9 - Anemia, unspecified Status: Acute Assessment and Plan: Baseline hemoglobin 10.3 with declined to 7.0 this admission Acute blood loss secondary to gastric ulcer on chronic iron deficient anemia Transfused 1 unit pRBC on 07/[address] Gardiner and gets iron infusions Anemia labs Iron 26, TIBC 310, % saturation 8, transferrin 231, ferritin 36.5, B12 greater than a 1000, folate 11.1 Continue ferrous sulfate 325 b.i.d. Continue to monitor H&H. Transfuse as needed to maintain hemoglobin >7.0 Stool occult blood test positive on 07/05/22 Appreciate GI consultation (3) Gastric ulcer: Qualifiers: Gastric ulcer chronicity: unspecified ulcer chronicity Gastric ulcer complication status: unspecified whether hemorrhage or perforation present Qualified Code(s): K25.9 - Gastric ulcer, unspecified as acute or chronic, without hemorrhage or perforation Code(s): K25.9 - Gastric ulcer, unspecified as acute or chronic, without hemorrhage or perforation Status: Acute Assessment and Plan: Patient with pyloric ulcer being followed by Gastroenterology, and Dr. Anthony a GI surgeon Continue Carafate Protonix 40 mg b.i.d. Patient does endorse intermittent coffee-ground emesis secondary to ulcer. No recent episodes Appreciate GI consultation. She has been referred to surgery for treatment of ulcer (4) Transaminitis: Code(s): R74.01 - Elevation of levels of liver transaminase levels Status: Resolved Assessment and Plan: resolved. Patient with markedly elevated LFTs on admission RUQ ultrasound completed showed mildly dilated intrahepatic bile ducts in the left hepatic lobe in association with a hyperechoic area of unclear significance with recommendations for follow up contrast CT CT of the abdomen/pelvis showed unchanged mild intra and extrahepatic biliary ductal dilation likely related to prior cholecystectomy MRCP reports stable intrahepatic and extrahepatic biliary duct dilatation without choledocholithiasis Hepatitis panel negative Appreciate GI consultation (5) SVT (supraventricular tachycardia): Code(s): I47.1 - Supraventricular tachycardia Status: Chronic Assessment and Plan: Chronic issue. Rate is controlled at this time Continue diltiazem (6) Chronic obstructive pulmonary disease, unspecified: Code(s): J44.9 - Chronic obstructive pulmonary disease, unspecified Status: Chronic Assessment and Plan: No acute issues or exacerbation Continue Advair Albuterol as needed (7) Hypothyroidism (acquired): Code(s): E03.9 - Hypothyroidism, unspecified Status: Chronic Assessment and Plan: TSH is within normal limits Continue levothyroxine Subjective Date/time seen: 07/07/22 17:07 Interval history: Date of service: 07/03/2022 Mike Brandt is a 66-year-old female with a history of COPD, chronic pain, hypertension, hyperlipidemia, SVT, gastric ulcer, chronic anemia, nephrolithiasis s/p ESWL of right renal calculus on 06/25/2022 who is seen in follow-up for right ureteral stone s/p lithotripsy and stent placement. she feels okay today. She does still have some right flank pain that she glenn
--- NOTE | 2022-07-07 17:23 | WPDGIPROGNO ---
Progress Note: A&P Assessment and Plan (1) Gastric ulcer: Qualifiers: Gastric ulcer chronicity: unspecified ulcer chronicity Gastric ulcer complication status: unspecified whether hemorrhage or perforation present Qualified Code(s): K25.9 - Gastric ulcer, unspecified as acute or chronic, without hemorrhage or perforation Code(s): K25.9 - Gastric ulcer, unspecified as acute or chronic, without hemorrhage or perforation Status: Acute Assessment and Plan: persistent ulcer after bariatric surgery, patient is planning to see soon bariatric surgeon she is using zofran in daily basis continue with ppi no signs of active bleeding she is tolerating diet will monitor from afar, call if questions (2) Nausea: Code(s): R11.0 - Nausea Status: Acute Assessment and Plan: chronic zofran is helping (3) Right ureteral stone: Code(s): N20.1 - Calculus of ureter Status: Acute Assessment and Plan: treated (4) Transaminitis: Code(s): R74.01 - Elevation of levels of liver transaminase levels Status: Resolved Assessment and Plan: MRCP reviewed, no choledocholithiasis, s/p cholecystectomy trending down (5) Acute on chronic anemia: Code(s): D64.9 - Anemia, unspecified Status: Acute Assessment and Plan: stable (6) Bariatric surgery status: Code(s): Z98.84 - Bariatric surgery status Status: Acute Subjective Date/time seen: 07/07/22 17:23 Interval history: less nausea, tolerating diet, similar flank pain Review of Systems Review of Systems: All systems reviewed & are unremarkable except as noted in HPI and below Exam Const: General: comfortable and alert Nutritional Appearance: average body habitus Orientation/consciousness: patient oriented x3 HENMT: Mouth: Yes moist mucous membranes Eyes: General: appearance normal, both eyes and all related structures Neck: Neck: supple Resp: Auscultation: clear to auscultation bilaterally Cardio: Rhythm: regular rhythm GI: GI Palp: Yes Soft to palpation, Yes Tenderness to palpation present (GI) ( Tender epigastric area) and No Guarding due to palpation present (GI) Auscultation: normal bowel sounds Skin: General skin exam: normal color Neuro: General: patient oriented x3 Speech: normal speech Extrem: General: normal to inspection Psych: Mental Status: mental status grossly normal Objective Data Vital Signs Vital Signs: Vital Signs - 24 hr 10/25/22 22:05 07/06/22 20:00 07/07/22 06:00 Temperature 98.6 F 97.3 F L Pulse Rate 83 83 92 Respiratory Rate 16 16 16 Blood Pressure 118/66 121/65 Pulse Oximetry 97 97 100 Oxygen Delivery Room Air 07/07/22 09:40 07/07/22 14:00 Temperature 97.7 F Pulse Rate 98 Respiratory Rate 14 Blood Pressure 117/67 Pulse Oximetry 97 Oxygen Delivery Room Air Intake/Output Intake/Output: Intake & Output 07/04/22 07/05/22 07/06/22 07/07/22 23:59 23:59 23:59 23:59 Intake Total 2570 2680 564 700 Output Total 2700 900 1700 500 Balance -130 1780 -1136 200 Meds/Results Medications: Active Medications Generic Name Dose Route Start Last Admin Trade Name Freq PRN Reason Stop Dose Admin Acetaminophen 650 mg 07/02/22 16:25 07/03/22 14:59 Acetaminophen 325 Mg Tablet PO 650 mg Q4H PRN Administration Pain 1-3 Hydrocodone Bitart/Acetaminophen 1 tab 07/05/22 15:48 07/07/22 16:22 Hydrocodone/Acetaminophen (*Crx) 5-325 Mg Tablet PO 1 tab Q4H PRN Administration Pain Rated 4-10 Albuterol 2.5 mg 07/01/22 21:55 Albuterol Sulfate Neb 2.5 Mg/3 Ml Inh INHALATION Q4HRT PRN Shortness Of Breath Bisacodyl 10 mg 07/03/22 09:00 Bisacodyl 10 Mg Suppository RECTAL QAM PRN Constipation Calcium Carbonate 500 mg 07/02/22 09:00 07/07/22 10:52 Calcium Carbonate (Oscal) 500 Mg Tablet PO 500 mg DAILY DAMION Administration Diltiazem HCl 240 mg
[2022-07-07 20:00] VITALS: PULSE 98; RESP 14; O2SAT 97
[2022-07-07] MEDS: PANTOPRAZOLE 40 MG TABLET PO (20:24)
[2022-07-07 22:00] VITALS: BP 112/56; PULSE 95; RESP 18; TEMP 36.2; O2SAT 97
[2022-07-08] MEDS: HYDROcodone/acetaminophen (*CRX) 5-325 MG TABLET 1 TAB PO ×3 (02:32→12:04)
[2022-07-08] MEDS: ONDANSETRON HCL ODT 4 MG TABLET PO ×2 (02:32→13:04)
[2022-07-08] MEDS: LEVOTHYROXINE SODIUM 75 MCG TABLET PO (05:37)
[2022-07-08 05:59] VITALS: BP 104/61; PULSE 95; RESP 18; TEMP 36.3; O2SAT 98
[2022-07-08 06:22] LABS: Hematocrit 29.5 % (37.0-47.0); Hemoglobin 8.6 g/dL (12.0-15.0); Mean Corpuscular HGB Conc 29.2 g/dl (32-36); Mean Corpuscular Hemoglobin 26.5 pg (26-34); Mean Platelet Volume 9.5 fl (7.4-10.4); Platelet Count Result 397 k/mm3 (150-375); Red Blood Count 3.24 M/mm3 (4.2-5.4); Red Cell Distribution Width 18.4 % (11.5-14.5)
[2022-07-08 06:37] LABS: Anion Gap 8 mmol/L (8-16); Blood Urea Nitrogen 20 mg/dL (7-17); Calcium 9.1 mg/dL (8.4-10.2); Carbon Dioxide 27 mmol/L (22-30); Chloride 107 mmol/L (98-107); Estimated CRCL calculation 68 ml/min; Estimated Glomerular Filt Rate > 60; Glucose 115 mg/dL (65-110); Potassium 3.7 mmol/L (3.4-5.0); Sodium 142 mmol/L (137-145)
[2022-07-08] MEDS: FLUTICASONE/SALMETEROL 115-21 MCG INHALER 1 PUFF 2 PUFF INHALATION (07:28)
[2022-07-08] MEDS: UMECLIDINIUM BROMIDE 62.5 MCG ELLIPTA 1 PUFF INHALATION (07:29)
[2022-07-08] MEDS: SUCRALFATE 1 GM TABLET BY MOUTH ×2 (07:53→11:18)
[2022-07-08] MEDS: TOPIRAMATE 100 MG TABLET PO (08:01)
[2022-07-08] MEDS: MONTELUKAST SODIUM 10 MG TABLET PO (08:01)
[2022-07-08] MEDS: FERROUS SULFATE 324 MG TABLET PO (08:01)
[2022-07-08] MEDS: FLUoxetine HCL 20 MG CAPSULE PO (08:01)
[2022-07-08] MEDS: PANTOPRAZOLE 40 MG TABLET PO (08:01)
[2022-07-08] MEDS: MIRABEGRON 25 MG ER TABLET PO (08:01)
[2022-07-08] MEDS: DOCUSATE SODIUM 100 MG CAPSULE PO (08:01)
[2022-07-08] MEDS: CALCIUM CARBONATE (OSCAL) 500 MG TABLET PO (11:18)
[2022-07-08] MEDS: HYOSCYAMINE SULFATE 0.125 MG TABLET PO (13:03)
--- NOTE | 2022-07-08 13:03 | P.DS_ITS ---
DS: Admitting Diagnosis Discharge Date 07/08/2022 Admitting Diagnosis ureteral stone DS: Discharge Diagnosis Discharge Diagnosis (1) Right ureteral stone: Code(s): N20.1 - Calculus of ureter Status: Acute Assessment and Plan: Presented to outside hospital, found to have retained 7 mm obstructing stone in the mid right ureter following ESWL 1 week prior * Patient was transferred to this facility for urology evaluation * Underwent cystoscopy with right ureteroscopy and laser lithotripsy of right ureteral stone and right renal calculus, stone extraction and right ureteral stent placement on 07/02. Tolerated procedure well. * Supportive care provided. Tylenol, [place], hyoscyamine as needed for symptoms. Short course provided * Urine culture at outside facility negative . * Will need outpatient urology follow-up (2) Acute on chronic anemia: Code(s): D64.9 - Anemia, unspecified Status: Acute Assessment and Plan: Baseline hemoglobin 10.3 with declined to 7.0 during admission * Acute blood loss secondary to gastric ulcer on chronic iron deficiency anemia * Transfused 1 unit pRBC on 07/03 * H&H remained stable following transfusion * Stool occult blood test positive on 07/05/2022. Patient was seen in consultation by GI. She is being referred to Bariatric surgery for treatment of gastric ulcer. See below * Continue outpatient follow-up with laminating machine tender Dr. Gardiner for iron infusions * Continue p.o. ferrous sulfate 325 mg b.i.d. (3) Gastric ulcer: Qualifiers: Gastric ulcer chronicity: unspecified ulcer chronicity Gastric ulcer complication status: unspecified whether hemorrhage or perforation present Qualified Code(s): K25.9 - Gastric ulcer, unspecified as acute or chronic, without hemorrhage or perforation Code(s): K25.9 - Gastric ulcer, unspecified as acute or chronic, without hemorrhage or perforation Status: Acute Assessment and Plan: Patient with pyloric ulcer being followed by Gastroenterology, * She has been referred to bariatric surgery given history of gastric bypass for treatment of ulcer * Continue Carafate and omeprazole 40 mg b.i.d. * Seen in consultation by GI during admission. No acute changes. Will continue outpatient follow-up with surgery (4) Transaminitis: Code(s): R74.01 - Elevation of levels of liver transaminase levels Status: Resolved Assessment and Plan: Resolved. Patient with markedly elevated LFTs on admission * RUQ ultrasound completed showed mildly dilated intrahepatic bile ducts in the left hepatic lobe in association with a hyperechoic area of unclear significance with recommendations for follow up contrast CT * CT of the abdomen/pelvis showed unchanged mild intra and extrahepatic biliary ductal dilation likely related to prior cholecystectomy * MRCP reports stable intrahepatic and extrahepatic biliary duct dilatation without choledocholithiasis * Hepatitis panel negative * LFTs with overall improvement, within normal limits at time of discharge (5) SVT (supraventricular tachycardia): Code(s): I47.1 - Supraventricular tachycardia Status: Chronic Assessment and Plan: Chronic issue. Rate remained controlled during admission * Continue diltiazem (6) Chronic obstructive pulmonary disease, unspecified: Code(s): J44.9 - Chronic obstructive pulmonary disease, unspecified Status: Chronic Assessment and Plan: No acute issues or exacerbation * Continue home Advair * Albuterol as needed
--- NOTE | 2022-07-08 13:03 | PM.DS ---
DS: Admitting Diagnosis Discharge Date 07/08/2022 Admitting Diagnosis ureteral stone DS: Discharge Diagnosis Discharge Diagnosis (1) Right ureteral stone: Code(s): N20.1 - Calculus of ureter Status: Acute Assessment and Plan: Presented to outside hospital, found to have retained 7 mm obstructing stone in the mid right ureter following ESWL 1 week prior Patient was transferred to this facility for urology evaluation Underwent cystoscopy with right ureteroscopy and laser lithotripsy of right ureteral stone and right renal calculus, stone extraction and right ureteral stent placement on 07/02. Tolerated procedure well. Supportive care provided. Tylenol, [place], hyoscyamine as needed for symptoms. Short course provided Urine culture at outside facility negative . Will need outpatient urology follow-up (2) Acute on chronic anemia: Code(s): D64.9 - Anemia, unspecified Status: Acute Assessment and Plan: Baseline hemoglobin 10.3 with declined to 7.0 during admission Acute blood loss secondary to gastric ulcer on chronic iron deficiency anemia Transfused 1 unit pRBC on 07/03 H&H remained stable following transfusion Stool occult blood test positive on 07/05/2022. Patient was seen in consultation by GI. She is being referred to Bariatric surgery for treatment of gastric ulcer. See below Continue outpatient follow-up with olap developer Dr. Gardiner for iron infusions Continue p.o. ferrous sulfate 325 mg b.i.d. (3) Gastric ulcer: Qualifiers: Gastric ulcer chronicity: unspecified ulcer chronicity Gastric ulcer complication status: unspecified whether hemorrhage or perforation present Qualified Code(s): K25.9 - Gastric ulcer, unspecified as acute or chronic, without hemorrhage or perforation Code(s): K25.9 - Gastric ulcer, unspecified as acute or chronic, without hemorrhage or perforation Status: Acute Assessment and Plan: Patient with pyloric ulcer being followed by Gastroenterology, She has been referred to bariatric surgery given history of gastric bypass for treatment of ulcer Continue Carafate and omeprazole 40 mg b.i.d. Seen in consultation by GI during admission. No acute changes. Will continue outpatient follow-up with surgery (4) Transaminitis: Code(s): R74.01 - Elevation of levels of liver transaminase levels Status: Resolved Assessment and Plan: Resolved. Patient with markedly elevated LFTs on admission RUQ ultrasound completed showed mildly dilated intrahepatic bile ducts in the left hepatic lobe in association with a hyperechoic area of unclear significance with recommendations for follow up contrast CT CT of the abdomen/pelvis showed unchanged mild intra and extrahepatic biliary ductal dilation likely related to prior cholecystectomy MRCP reports stable intrahepatic and extrahepatic biliary duct dilatation without choledocholithiasis Hepatitis panel negative LFTs with overall improvement, within normal limits at time of discharge (5) SVT (supraventricular tachycardia): Code(s): I47.1 - Supraventricular tachycardia Status: Chronic Assessment and Plan: Chronic issue. Rate remained controlled during admission Continue diltiazem (6) Chronic obstructive pulmonary disease, unspecified: Code(s): J44.9 - Chronic obstructive pulmonary disease, unspecified Status: Chronic Assessment and Plan: No acute issues or exacerbation Continue home Advair Albuterol as needed (7) Hypothyroidism (acquired): Code(s): E03.9 - Hypothyroidism, unspecified Status: Chronic Assessment and Plan: TSH is within normal limits Continue levothyroxine DS: Summary Hospital Course Hospital Course: Date of admission: 07/01/2022 Date of discharge: 07/08/2022 Mike Brandt is a 66-year-old female with a history of COPD, chronic pain, hypertension, hyperlipidemia, S
[2022-07-08 14:19] VITALS: BP 107/77; PULSE 89; RESP 16; TEMP 36.3; O2SAT 90
== END 2022-07-08 15:40 | disposition home or self-care (01) | DRG 659 ==
PROVIDERS: Internal Medicine Gastroenterology; Nurse Practitioner; Physician Assistant; Urology; Admitting Provider Internal Medicine; PCP Internal Medicine; Visit Provider Family Medicine
PROC: 0T768DZ Dilation of Right Ureter with Intraluminal Device, Via Natural or Artificial Opening Endoscopic (ICD-10-PCS; CPT 52352; principal; 2022-07-02 13:45)
DX: N13.2 Hydronephrosis with renal and ureteral calculous obstruction (principal); K25.4 Chronic or unspecified gastric ulcer with hemorrhage; D62 Acute posthemorrhagic anemia; I47.1 Supraventricular tachycardia; J44.9 Chronic obstructive pulmonary disease, unspecified; E78.5 Hyperlipidemia, unspecified; E03.9 Hypothyroidism, unspecified; G89.29 Other chronic pain; G43.909 Migraine, unspecified, not intractable, without status migrainosus; K21.9 Gastro-esophageal reflux disease without esophagitis; Z98.84 Bariatric surgery status; Z86.16 Personal history of COVID-19; Z90.49 Acquired absence of other specified parts of digestive tract; Z87.891 Personal history of nicotine dependence
CPT/HCPCS: 36415; 36430; 74177; 74183; 74420; 76376; 76705; 80048; 80053; 80074; 80076; 82274; 82365; 82607; 82728; 82746; 83540; 83550; 83605; 83690; 83735; 84132; 84443; 84466; 85014; 85018; 85025; 85027; 86140; 86850; 86900; 86901; 86923; 88300; 94640; 96361; 96365; 96375; 96376; A9270; A9577; C1769; C2617; C9113; G0378; G0379; J0696; J1170; J2250; J2405; J2704; J3010; J3480; J7040; J7042; J7120; P9016; Q9967

== ENCOUNTER 2022-07-12 11:52 | Outpatient (CLI) | payer MEDICARE, MEDICAID, SELFPAY ==
--- NOTE | ~2022-07-12 | XR_ITS ---
EXAMINATION: XR abdomen/kub 1V DATE: 07/12/2022 12:13 INDICATION: Right ureteral stone. TECHNIQUE: A supine view of the abdomen on 2 radiographs was obtained. COMPARISON: Abdomen radiographs 06/25/2022, CT abdomen and pelvis 07/04/2022 FINDINGS: There are no dilated loops of bowel. There is a right internal ureteral stent in expected p osition. There are surgical clips in the upper abdomen. The kidneys are obscured by bowel. A bowel st aple line overlies right abdomen. There are phleboliths in the pelvis. IMPRESSION: 1. No visible urolithiasis. 2. Right internal ureteral stent in expected position. Reviewed, dictated and finalized at location A.
== END 2022-07-12 11:53 | disposition home or self-care (01) ==
LOC: ANHIMG 11:55
PROVIDERS: PCP Internal Medicine; Visit Provider Urology
DX: N20.1 Calculus of ureter (principal)
CPT/HCPCS: 74018

== ENCOUNTER 2022-07-15 07:57 | Outpatient (RCR) | payer MEDICARE, MEDICAID, SELFPAY ==
[2022-07-15] VITALS (10 sets, daily range): BP systolic 107–126; BP diastolic 52–57; PULSE 90–96; RESP 16–18; TEMP 36.1–36.8; O2SAT 98–100
[2022-07-15 08:34] LABS: Hematocrit 18.2 % (37.0-47.0)
--- NOTE | 2022-07-15 08:39 | PC.NURSE ---
Left message for Dr. Gardiner's office for critical H & H of 5.0/18.2. I asked for a call back KESHIA. Patient denies history of CHF.
[2022-07-15] MEDS: diphenhydrAMINE HCl CAP 25 MG CAPSULE PO (08:42)
[2022-07-15] MEDS: ACETAMINOPHEN 325 MG TABLET 650 MG PO (08:42)
[2022-07-15] MEDS: SODIUM CHLORIDE 0.9% IV 250 ML 30 ML IV CONT (08:43)
--- NOTE | 2022-07-15 08:55 | PC.NURSE ---
Spoke with Opal at Dr. Gardiner's office and informed her of patient's labs and status with appt with surgeon not until 07/21/22. She will discuss the case with Dr. Gardiner and get back with us but in the mean time go ahead and start the 2 units of PRBCs.
[2022-07-15] MEDS: FUROSEMIDE INJ 40 MG/4 ML VIAL 20 MG IV PUSH (11:28)
--- NOTE | 2022-07-15 12:05 | PC.NURSE ---
CALL PLACED TO DR. GABRIEL'S OFFICE SINCE HAVE NOT HEARD BACK RE: PREVIOUS CALL YET. THIS RN SPOKE W/ DR. GABRIEL. DR. GABRIEL STATES HE IS AWARE OF PT'S HH OF 01/27.2. ONLY TRANSFUSE PT 2UNITS PRBC'S ORDERED ALREADY; DOES NOT WANT TO GIVE A 3RD UNIT. HAVE PT. CALL HIS OFFICE FOR FOLLOW UP BLOOD COUNT NEXT WEEK. PT. TO KEEP SCHEDULED APPOINTMENT WITH SURGEON FOR NEXT WEEK AND CALL SURGEON'S OFFICE FOR ANY CONCERNS.
== END 2022-10-13 23:59 | disposition home or self-care (01) ==
LOC: ANHCPCTRAN 07:57
PROVIDERS: PCP Internal Medicine; Visit Provider Internal Medicine Hematology & Oncology
DX: D50.9 Iron deficiency anemia, unspecified (principal)
CPT/HCPCS: 36415; 36430; 85014; 85018; 86850; 86900; 86901; 86923; 96374; A9270; J1940; J7050; P9016

== ENCOUNTER 2022-08-10 15:15 | Inpatient (IN) | payer MEDICARE, MEDICAID, SELFPAY ==
[2022-08-10] VITALS (11 sets, daily range): BP systolic 99–126; BP diastolic 49–70; PULSE 79–102; RESP 14–18; TEMP 36.2–36.7; O2SAT 98–100; BMI 28.0
--- NOTE | 2022-08-10 16:58 | ADMGEN ---
This patient, Mike Brandt, was admitted to 3 [facility] Surg Room 313-01 at 1610. Patient/family oriented to hospital policies and general routines including ID bracelet, bed and alarms, visiting hours, pain management, procedures, bathroom and other care routines, personal items, smoking policy, room service/diet, and visiting hours. Information on how to activate the Rapid Response Team has been discussed. Patient/Family are encouraged to report perceived risks to care and to ask questions if they do not understand what they are told or what they should do.
--- NOTE | 2022-08-10 18:00 | PM.IMHP ---
H&P: HPI History of Present Illness Date/Time: 08/10/22 18:00 Chief Complaint: Acute on chronic anemia. Narrative: This is a very pleasant 66-year-old female status post gastric bypass surgery in 1981 with established gastric ulcer, iron deficiency anemia, COPD, paroxysmal SVT, and kidney stones who is being directly admitted to the hospital from for blood transfusion due to acute on chronic anemia. The last month she has had intermittent episodes of melena and occasional hematemesis attributed to establish gastric ulcer for which she has been referred to [facility] for further management (appointment is on 08/18/2022). Due to intermittent blood loss she has required iron transfusions and blood transfusions with the last being several weeks ago. Over the past 1 week or so she has once again started having symptoms of anemia with occasional lightheadedness, dizziness, fatigue, sensations of racing heart, and shortness of breath with exertion. Hemoglobin today was 4.8 and she is being admitted in this setting for transfusion. At the time my evaluation she has no active complaints. She states compliance with her Carafate and PPI. Review of Systems Review of Systems: Twelve systems were reviewed and are negative except for as per HPI. REPLACED BY [facility] Past Medical History Medical History (Updated 08/10/22 @ 21:04 by Allyn Johns PA-C) Adenomatous colon polyp Asthma Chronic obstructive pulmonary disease, unspecified Chronic pain disorder COVID-19 Essential (primary) hypertension Gastric ulcer Gastroesophageal reflux disease Hyperlipidemia, unspecified Hypothyroidism Impaired glucose tolerance (oral) Migraine Paroxysmal supraventricular tachycardia Postmenopausal Right sided sciatica Uterine bleeding, dysfunctional Surgical History Surgical History Bariatric surgery status History of gastric bypass Hx of abdominal surgery the patient stated she had a triple hernia repair. She had mesh placed in her abdomen. It she had 6-7 surgeries on her abdomen to remove the mesh and she also had a colectomy and a portion of her liver removed. Hx of cholecystectomy Family History Family History Sibling Hypertension Father Acute myocardial infarction, Onset Age: 62 Patient's father is Family history of cardiovascular disease, Onset Age: 62 Mother Family history of chronic obstructive pulmonary disease Family history of diabetes mellitus in first degree relative Patient's mother is Diabetes mellitus, Onset Age: 62 Social History Social History (Updated 08/10/22 @ 21:01 by Allyn Johns PA-C) Social History: The patient is and she lives home alone. The patient stated that she quit smoking many years ago. She has no children. 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 She denies any alcohol or illicit drugs. she does not have a durable power regulatory attorney for healthcare. Code status full code Smoking packs per day: 1.5 Smoking cigarettes per day: 30.0 Years smoked: 42 Smoking pack-years: 63.00 Smoking status: Former smoker Second hand tobacco smoke exposure: No Alcohol intake: never Substance use: never Substance use type: does not use Lack of Transportation: No Lack of Food: Never True Current Housing: I Have Housing Concerned About Future Housing: No Difficulty Paying Gas/Electric Bills: No Difficulty Paying for Meds: No Currently Unemployed: No Education: High School Diploma/GED Difficulty w/ Childcare or Family Care: No Spiritual care concerns: No Meds Home Medications and Allergies Home Medications Medication Instructions Recorded Confirmed Type diltiazem HCl 240 mg 240 mg PO QAM 05/23/20 08/10/22 History capsule,extended release 24 hr, controlled (DILT-XR) fluoxetine 20 mg ca
--- OUTSIDE RECORDS SUMMARY | 2022-08-10 18:29 | XMS_ITS | Encounter Summary ---
:1955 Author Care Team Providers Name Role Phone Dr. Kartik Abarca Primary Care Provider [phone] Dr. Kartik Abarca Referring Provider [phone] Reason for Visit Left Wrist Pain/injury Assessment and Plan Assessment Note HPI: Patient returns. Her left hand and wrist are still painful and swollen. She has been going to physical therapy and working on range of motion of her wrist and fingers but has not had significant i mprovement since I last saw her a month ago. She stop using the brace on the wrist completely. She states she does her exercises at home on a daily basis. She try the Voltaren gel without improvement of symptoms. She is unable take anti-infla mmatories because she has an active ulcer that is being evaluated at this point and is likely going to need surgery she states. She is seeing the surgeon in [address] scheduled for next week. Again all the symptoms started after she picked up a grocery bag at that weight less than 10 lb in early March. Physical exam patient has mild swelling in the fingers particularly the MP joints. She does have full extension of the fingers but is has moderate pain with maximum extension. The D IP and the PIP joint s move well without discomfort. She has moderate pain with full flexion of the MP joints. She has full pronation supination. She has approximately 30? of volar and dorsiflexion at the wrist with mo derate pain. There is no redness or warm th to the hand. There is no skin changes noted. No atrophy noted. Forearm looks normal. Impression: Patient has continued stiffn ess and swelling in the MP joints and the wrist of the left hand. Again she is unable take anti-inflammatories due to active ulcer. Last time she was here I discu ssed the option of MRI scan to rule out pathology. She would like to do this. She will continue with outpatient therapy. There is always a possibility that this could be RSD of her hand. Typically allow have skin changes with this which she d oes not. Overall is very odd presentation of symptoms especially with the onset occurring with such a minor action. We will obtain the MRI scan and see he
--- OUTSIDE RECORDS SUMMARY | 2022-08-10 18:29 | XMS_ITS ---
:1955 Author Care Team Providers Name Role Phone DR. MELVI MÁRQUEZ Primary Care Provider [phone] DR. MELVI MÁRQUEZ Referring Provider [phone] Allergies Code Code System Name Reaction Severity Status Onset Sulfa (Sulfonamide Antibiotics) Other ? Active ? Medications Name Status Start Date Stop Date ? ? acetaminophen 300 mg-codeine 30 mg tablet Unknown ? Not available Advair Diskus 250 mcg-50 mcg/dose powder for inhalation Active ? Not available Afluria 8468-8521(PF) 45 mcg (15 mcg x 3)/0.5 mL intramuscul ar syringe Unknown ? Not available TO BE ADMINISTERED BY PHARMACIST FOR IMMUNIZATION Afluria 9579-6623 (PF) 45 mcg (15 mcg x 3)/0.5 mL IM syringe Unk nown ? Not available TO BE ADMINISTERED BY PHARMACIST FOR IMMUNIZATION albuterol sulfate HFA 90 mcg/actuation aerosol inhaler Active ? Not available INHALE 1 PUFF EVERY 4 HOURS NEEDED FOR SHORTNESS OF BREATH/W HEEZING alendronate 70 mg tablet Active ? Not erum ilable TAKE 1 TABLET BY MOUTH WEEKLY amoxicillin 500 mg capsule Completed ? 04/25 TK 1 C PO TID amoxicillin 875 mg-potassium clavulanate 125 mg tablet Completed ? 04/25/2018 TK 1 T PO BID BD Luer-Trace Syringe 3 mL 21 gauge x 1 Active ? Not available USE FOR INJECTION OF B12 BD Luer-Trace Syringe 3 mL 25 gauge x 1 Active ? Not available U UTD FOR B12 INJECTIONS BD Tuberculin Syringe 1 mL 25 gauge x 5/8 Active ? Not available USE WITH INJECTION MONTHLY BD Tuberculin Syringe 1 mL 27 x 1/2 Unknown ? Not available USE WITH B12 INJECTIONS-ONCE PER MONTH ceftriaxone 2 gram solution for injection Unknown ? Not available
--- OUTSIDE RECORDS SUMMARY | 2022-08-10 18:29 | XMS_ITS ---
:1955 Author Care Team Providers Name Role Phone YOLIE BROWER MD Primary Care Provider [phone] Allergies Code Code System Name Reaction Severity Status Onset Sulfa (Sulfonamide Antibiotics) Other ? Active ? Medications Name Status Start Date Stop Date ? ? acetaminophen 300 mg-codeine 30 mg tablet Unknown ? Not available Advair Diskus 250 mcg-50 mcg/dose powder for inhalation Active ? Not available INL 1 PUFF PO Q 12 H advair diskus 250-50 mcg/dose aepb Completed ? 04/25/2018 Afluria 4892-6873(PF) 45 mcg (15 mcg x 3)/0.5 mL intramuscul ar syringe Unknown ? Not available TO BE ADMINISTERED BY PHARMACIST FOR IMMUNIZATION Afluria [id number] (PF) 45 mcg (15 mcg x 3)/0.5 mL IM syringe Unk nown ? Not available TO BE ADMINISTERED BY PHARMACIST FOR IMMUNIZATION amoxicillin 500 mg caps Completed ? 04/25/20 18 amoxicillin 500 mg capsule Completed ? 04/25 TK 1 C PO TID amoxicillin 875 mg-potassium clavulanate 125 mg tablet Completed ? 04/25/2018 TK 1 T PO BID amoxicillin/clavulanate potassium 875-125 mg Completed ? 04/25/2018 tabs BD Luer-Trace Syringe 3 mL 25 gauge x 1 Active ? Not available U UTD FOR B12 INJECTIONS BD Tuberculin Syringe 1 mL 25 gauge x 5/8 Active ? Not available USE WITH INJECTION MONTHLY BD Tuberculin Syringe 1 mL 27 x 1/2 Unknown ? Not available USE WITH B12 INJECTIONS-ONCE PER MONTH ceftriaxone 2 gram solution for injection Unknown ? Not available cefuroxime axetil 250 mg tablet Unknown ? Not available cephalexin 250 mg caps Unknown ? Not avail able cephalexin 250 mg capsule Unk
--- OUTSIDE RECORDS SUMMARY | 2022-08-10 18:29 | XMS_ITS | Encounter Summary ---
:1955 Author Care Team Providers Name Role Phone Dr. Kartik Abarca Primary Care Provider [phone] Dr. Kartik Abarca Referring Provider [phone] Reason for Visit Left Wrist Pain/injury Assessment and Plan Assessment Note HPI: 66-year-old female came in today f or evaluation of her left wrist pain. She injured it she states on the 2nd week in March. 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 She noticed a popping when this happened. He was sore immediately. She dealt with it for as long as she could but then on 04/02 so her primary care doctor yessica use of the pain and they ordered x-rays. She brought these in today I did review. This showed no definite abnormalities. She is on take anti- inflammatories because of history of ulcer. She is taking Tyl enol which is not helping. She has been using a brace on the wrist for the last 5 weeks on and off. Physical exam: 66-year-old female alert pleasant. She has no swelling in the wrist hand or fingers. She has full extension of her fingers but has pain with flexion she does have passive full motion with flexion but does complain of pain. She has no pain with full extension as well. She has tenderness over the dorsum of the wrist to palpation. She has moderate pain with dorsiflexion and volar flexion o f the wrist. No tenderness over the TFCC area. There is no tenderness at the scaphoid or radial styloid. She also complains of some pain with palpation of the metacarpals dorsally as well. .She has full range of motion elbow. She complains of no numbness or tingling The fingers. She with strength testing she has very poor effort and her hand is somewhat tremors. Impression: Patient has dorsal sided lef t wrist pain. This happened when she was picking up a grocery bag that was less than 10 lb. She had the wrist completely straight when she was doing this without that she caused any severe injury to the wrist. I think that she may have had a strain of the dorsal wrist with doing this due to this area being the most sensitive to physical exam. There is no bony ab
[2022-08-10] MEDS: SUCRALFATE SUSP 100 MG/ML 10 ML UDC 1000 MG PO ×2 (18:45→21:21)
[2022-08-10] MEDS: ACETAMINOPHEN 325 MG TABLET 650 MG PO (21:21)
[2022-08-10] MEDS: TOPIRAMATE 100 MG TABLET PO (22:50)
[2022-08-11 00:55] VITALS: BP 116/49; PULSE 95; RESP 16; TEMP 36.1; O2SAT 98
[2022-08-11 02:15] VITALS: BP 119/54; PULSE 91; RESP 14; TEMP 37; O2SAT 98
[2022-08-11 05:29] LABS: Hematocrit 28.1 % (37.0-47.0); Hemoglobin 8.6 g/dL (12.0-15.0)
[2022-08-11 05:50] VITALS: BP 121/50; PULSE 96; RESP 15; TEMP 36.2; O2SAT 98
[2022-08-11] MEDS: LEVOTHYROXINE SODIUM 75 MCG TABLET PO (06:15)
[2022-08-11] MEDS: SUCRALFATE 1 GM TABLET PO ×4 (06:48→21:41)
[2022-08-11] MEDS: UMECLIDINIUM BROMIDE 62.5 MCG ELLIPTA 1 PUFF INHALATION (08:44)
[2022-08-11] MEDS: FLUTICASONE/SALMETEROL 115-21 MCG INHALER 1 PUFF 2 PUFF INHALATION ×2 (08:44→20:43)
[2022-08-11] MEDS: FAMOTIDINE 20 MG TABLET 40 MG PO (09:20)
[2022-08-11] MEDS: FLUoxetine HCL 20 MG CAPSULE PO (09:20)
[2022-08-11] MEDS: PANTOPRAZOLE 40 MG TABLET PO ×2 (09:20→16:08)
[2022-08-11] MEDS: TOPIRAMATE 100 MG TABLET PO ×2 (09:20→21:41)
[2022-08-11] MEDS: MIRABEGRON 25 MG ER TABLET PO (09:20)
--- NOTE | 2022-08-11 12:52 | PM.IMPN ---
Progress Note: A&P Assessment and Plan (1) Acute on chronic anemia: Code(s): D64.9 - Anemia, unspecified Status: Acute Assessment and Plan: 2/2 acute blood loss anemia from gastric ulcer following bariatric surgery. Hgb 4.8 on admission. s/p 2 units PRBC on admission Continue PPI BID and famotidine Serum iron 17, saturation 4%, TIBC 459, Ferritin 8.73. Continue IV Venofer 500 mg Q24 hours x2 more doses. Trend H/H Monitor vital signs Monitor stools She has scheduled GI appointment at [facility] 08/18/22 (2) Gastric ulcer: Qualifiers: Gastric ulcer chronicity: chronic Gastric ulcer complication status: with hemorrhage Qualified Code(s): K25.4 - Chronic or unspecified gastric ulcer with hemorrhage Code(s): K25.9 - Gastric ulcer, unspecified as acute or chronic, without hemorrhage or perforation Status: Chronic Assessment and Plan: She reports gastric ulcer in pre-pyloric region found in April 2022. She was referred to Bariatric surgeon and awaiting referral evaluation. Continue PPI, H2 yasmany, and carafate AC/HS as previously prescribed. Transfuse if hgb<7 as needed PRN antiemetics Appointment scheduled 08/18/22 (3) Hypothyroidism: Qualifiers: Hypothyroidism type: acquired Qualified Code(s): E03.9 - Hypothyroidism, unspecified Code(s): E03.9 - Hypothyroidism, unspecified Status: Chronic Assessment and Plan: Chronic, stable. Continue levothyroxine at home dose (4) Gastroesophageal reflux disease: Qualifiers: Esophagitis presence: without esophagitis Qualified Code(s): K21.9 - Gastro-esophageal reflux disease without esophagitis Code(s): K21.9 - Gastro-esophageal reflux disease without esophagitis Status: Chronic Assessment and Plan: Chronic, stable. On PPI and H2 yasmany (5) Essential (primary) hypertension: Code(s): I10 - Essential (primary) hypertension Status: Chronic Assessment and Plan: chronic, stable. Resume diltiazem in am if BP allows (patient has h/o paroxysmal SVT) (6) Chronic obstructive pulmonary disease, unspecified: Qualifiers: COPD type: unspecified COPD Qualified Code(s): J44.9 - Chronic obstructive pulmonary disease, unspecified Code(s): J44.9 - Chronic obstructive pulmonary disease, unspecified Status: Chronic Assessment and Plan: Chronic, stable, not in acute exacerbation Continue Incruse Ellipta scheduled and PRN albuterol MDI Plan CODE STATUS: FULL CODE Disposition: estimated LOS 1-2 days, plan to DC home when H/H stable. Time Spent With Patient Time with patient: 15 - 25 minutes Subjective Date/time seen: 08/11/22 12:52 She feels better after receiving blood. No stools since admission. She states she was at the infusion center for IV iron when she had her blood counts tested and were found to be low. She did receive one dose of IV iron yesterday. She has intermittent chronic nausea, but none today and chronic back and neck pain. No chest pain, SOB, palpitations, dizziness, abd pain, emesis, or hematuria. Review of Systems Review of Systems: All systems reviewed & are unremarkable except as noted in HPI and below Exam Narrative: General: No acute distress.? chronically ill appearing?older adult female.? Sitting up in bed.? Mental Status/Psych: Awake, alert and oriented x4 with clear speech. Neutral mood and affect. Pleasant and cooperative. Skin: Pallor. warm, dry and intact without rashes or lesions. No open wounds.? HEENT: Normocephalic.? Sclera is non-icteric. EOM intact. Pupils equal and round. Grossly normal hearing. Oral mucosa pink and moist. Neck: Supple. Trachea midline. No JVD. Heart: S1 and S2 regular rate and rhythm. No murmurs, gallops, or rubs auscultated. Chest: Respirations even and unlabored. Lung sounds are clear to auscultation in all lobes bilaterally without wheezes, r
[2022-08-11 14:00] VITALS: BP 131/58; PULSE 100; RESP 16; TEMP 36.6; O2SAT 98
[2022-08-11] MEDS: HYDROcodone/acetaminophen (*CRX) 5-325 MG TABLET 1 TAB PO (16:07)
[2022-08-11] MEDS: MONTELUKAST SODIUM 10 MG TABLET PO (21:41)
[2022-08-11] MEDS: ACETAMINOPHEN 325 MG TABLET 650 MG PO (21:41)
[2022-08-11 22:00] VITALS: BP 127/60; PULSE 100; RESP 13; TEMP 36; O2SAT 99
[2022-08-12 06:00] VITALS: BP 126/66; PULSE 86; RESP 15; TEMP 35.6; O2SAT 100
[2022-08-12] MEDS: LEVOTHYROXINE SODIUM 75 MCG TABLET PO (06:08)
[2022-08-12 06:49] LABS: Hematocrit 30.8 % (37.0-47.0); Hemoglobin 9.3 g/dL (12.0-15.0); Mean Corpuscular HGB Conc 30.2 g/dl (32-36); Mean Corpuscular Hemoglobin 24.8 pg (26-34); Mean Corpuscular Volume 82.1 fl (80-100); Mean Platelet Volume 10.4 fl (7.4-10.4); Platelet Count Result 266 k/mm3 (150-375); Red Blood Count 3.75 M/mm3 (4.2-5.4); Red Cell Distribution Width 16.9 % (11.5-14.5); White Blood Count 4.4 K/mm3 (4.5-10.0)
[2022-08-12] MEDS: SUCRALFATE 1 GM TABLET PO ×2 (06:55→10:49)
[2022-08-12] MEDS: ACETAMINOPHEN 325 MG TABLET 650 MG PO (06:55)
[2022-08-12 07:00] LABS: Anion Gap 6 mmol/L (8-16); Blood Urea Nitrogen 8 mg/dL (7-17); Calcium 8.5 mg/dL (8.4-10.2); Carbon Dioxide 21 mmol/L (22-30); Chloride 112 mmol/L (98-107); Estimated CRCL calculation 87 ml/min; Estimated Glomerular Filt Rate > 60; Glucose 96 mg/dL (65-110); Magnesium 2.2 mg/dL (1.6-2.3); Potassium 3.3 mmol/L (3.4-5.0); Sodium 139 mmol/L (137-145)
[2022-08-12] MEDS: FLUoxetine HCL 20 MG CAPSULE PO (08:25)
[2022-08-12] MEDS: MIRABEGRON 25 MG ER TABLET PO (08:25)
[2022-08-12] MEDS: PANTOPRAZOLE 40 MG TABLET PO (08:25)
[2022-08-12] MEDS: FAMOTIDINE 20 MG TABLET 40 MG PO (08:25)
[2022-08-12] MEDS: IRON SUCROSE COMPLEX 500 MG in SODIUM CHLORIDE 0.9% IV 250 ML 78.57 MG IVPB (08:26)
[2022-08-12] MEDS: TOPIRAMATE 100 MG TABLET PO (08:26)
[2022-08-12] MEDS: FLUTICASONE/SALMETEROL 115-21 MCG INHALER 1 PUFF 2 PUFF INHALATION (08:43)
[2022-08-12] MEDS: UMECLIDINIUM BROMIDE 62.5 MCG ELLIPTA 1 PUFF INHALATION (08:43)
[2022-08-12] MEDS: POTASSIUM CHLORIDE 20 MEQ TABLET 40 MEQ PO (10:48)
--- NOTE | 2022-08-12 13:21 | PM.DS ---
DS: Admitting Diagnosis Discharge Date 08/12/22 1530 Admitting Diagnosis Acute on chronic anemia Gastric ulcer, chronic GERD, chronic Essential hypertension Hypothyroidism COPD, not in acute exacerbation. DS: Discharge Diagnosis Discharge Diagnosis (1) Acute on chronic anemia: Code(s): D64.9 - Anemia, unspecified Status: Acute Assessment and Plan: 2/2 acute blood loss anemia from gastric ulcer following bariatric surgery. Hgb 4.8 on admission. s/p 2 units PRBC on admission Continue PPI BID and famotidine Serum iron 17, saturation 4%, TIBC 459, Ferritin 8.73. Continue IV Venofer 500 mg Q24 hours x2 more doses, she had 1 dose at the infusion center prior to admission. Trended H/H, which was stable 8.6 to 9.3 She has scheduled GI appointment at [facility] 08/18/22 (2) Gastric ulcer: Qualifiers: Gastric ulcer chronicity: chronic Gastric ulcer complication status: with hemorrhage Qualified Code(s): K25.4 - Chronic or unspecified gastric ulcer with hemorrhage Code(s): K25.9 - Gastric ulcer, unspecified as acute or chronic, without hemorrhage or perforation Status: Chronic Assessment and Plan: She reports gastric ulcer in pre-pyloric region found in April 2022. She was referred to Bariatric surgeon and awaiting referral evaluation. Continued PPI, H2 yasmany, and carafate AC/HS as previously prescribed. Monitored H/H PRN antiemetics Appointment with Bariatric surgery at scheduled 08/18/22 (3) Hypothyroidism: Qualifiers: Hypothyroidism type: acquired Qualified Code(s): E03.9 - Hypothyroidism, unspecified Code(s): E03.9 - Hypothyroidism, unspecified Status: Chronic Assessment and Plan: Chronic, stable. Continue levothyroxine at home dose (4) Gastroesophageal reflux disease: Qualifiers: Esophagitis presence: without esophagitis Qualified Code(s): K21.9 - Gastro-esophageal reflux disease without esophagitis Code(s): K21.9 - Gastro-esophageal reflux disease without esophagitis Status: Chronic Assessment and Plan: Chronic, stable. On PPI and H2 yasmany (5) Essential (primary) hypertension: Code(s): I10 - Essential (primary) hypertension Status: Chronic Assessment and Plan: chronic, stable. Resumed diltiazem at home dose and tolerated well. (6) Chronic obstructive pulmonary disease, unspecified: Qualifiers: COPD type: unspecified COPD Qualified Code(s): J44.9 - Chronic obstructive pulmonary disease, unspecified Code(s): J44.9 - Chronic obstructive pulmonary disease, unspecified Status: Chronic Assessment and Plan: Chronic, stable, not in acute exacerbation Continued Incruse Ellipta scheduled and PRN albuterol MDI DS: Summary Hospital Course Reason for hospitalization: Low blood counts Hospital Course: Mike Brandt is a 66-year-old female status post gastric bypass surgery in 1981 with established gastric ulcer found in April 2022, iron deficiency anemia, COPD, paroxysmal SVT, and kidney stones who was directly admitted to the hospital for blood transfusion due to acute on chronic anemia. The last month, she has had intermittent episodes of melena and occasional hematemesis attributed to establish gastric ulcer for which she has been referred to [facility] for further management (appointment is on 08/18/2022). Due to intermittent blood loss she has required iron transfusions and blood transfusions with the last being several weeks ago. Over the past 1 week or so she started having occasional lightheadedness, dizziness, fatigue, sensations of racing heart, and shortness of breath with exertion. Hemoglobin on admission was 4.8. She reports compliance with her Carafate and PPI. She was admitted to the medical floor and received 2 units of PRBCs. Venofer 500 mg IV was given x 2 doses. She reported receiving a dose of IV iron on the day of
[2022-08-12 13:46] VITALS: BP 121/69; PULSE 99; RESP 16; TEMP 36.4; O2SAT 97
== END 2022-08-12 16:30 | disposition home or self-care (01) ==
PROVIDERS: Internal Medicine; Admitting Provider Student in an Organized Health Care Education/Training Program; PCP Internal Medicine; Visit Provider Nurse Practitioner Family
DX: D62 Acute posthemorrhagic anemia (principal); K25.4 Chronic or unspecified gastric ulcer with hemorrhage; I47.1 Supraventricular tachycardia; I10 Essential (primary) hypertension; J44.9 Chronic obstructive pulmonary disease, unspecified; K21.9 Gastro-esophageal reflux disease without esophagitis; E78.5 Hyperlipidemia, unspecified; E03.9 Hypothyroidism, unspecified; M54.31 Sciatica, right side; G89.29 Other chronic pain; Z98.84 Bariatric surgery status; Z90.49 Acquired absence of other specified parts of digestive tract; Z86.010 Personal history of colon polyps; Z87.891 Personal history of nicotine dependence
CPT/HCPCS: 36415; 36430; 80047; 80048; 83735; 85014; 85018; 85025; 85027; 86850; 86900; 86901; 86923; 94640; 96365; 96375; A9270; J1200; J1756; J7050; P9016; Q0138

== ENCOUNTER 2022-11-09 07:24 | Outpatient (RCR) | payer MEDICARE, MEDICAID, SELFPAY ==
[2022-10-29] VITALS (9 sets, daily range): BP systolic 102–123; BP diastolic 55–70; PULSE 81–93; RESP 16; TEMP 36.1–36.9; O2SAT 100
[2022-10-29 07:45] LABS: Hematocrit 23.2 % (37.0-47.0)
[2022-10-29 07:47] LABS: Hemoglobin 6.5 g/dL (12.0-15.0)
[2022-10-29] MEDS: diphenhydrAMINE HCl CAP 25 MG CAPSULE PO (07:56)
[2022-10-29] MEDS: SODIUM CHLORIDE 0.9% IV 250 ML 30 ML IV CONT (07:56)
[2022-10-29] MEDS: ACETAMINOPHEN 325 MG TABLET 650 MG PO (07:56)
[2022-10-29] MEDS: FUROSEMIDE INJ 40 MG/4 ML VIAL 20 MG IV PUSH (10:32)
[2022-10-29] MEDS: HEPARIN SODIUM LOCK FLUSH 500 UNITS/5 ML VIAL (13:43)
[2022-11-09] VITALS (10 sets, daily range): BP systolic 106–133; BP diastolic 56–69; PULSE 90–100; RESP 14–18; TEMP 36.4–37.2; O2SAT 98–100
[2022-11-09] MEDS: ACETAMINOPHEN 325 MG TABLET 650 MG PO (07:48)
[2022-11-09] MEDS: diphenhydrAMINE HCl CAP 25 MG CAPSULE PO (07:49)
[2022-11-09] MEDS: SODIUM CHLORIDE 0.9% IV 250 ML 30 ML IV CONT (07:51)
[2022-11-09] MEDS: TUBING, BLOOD PLUM PUMP TUBING 1 EACH XX (07:51)
[2022-11-09] MEDS: FUROSEMIDE INJ 40 MG/4 ML VIAL 20 MG IV PUSH (10:20)
[2022-11-09] MEDS: HEPARIN SODIUM LOCK FLUSH 500 UNITS/5 ML VIAL (13:40)
== END 2023-01-25 23:59 | disposition home or self-care (01) ==
LOC: ANHCPCTRAN 07:24
PROVIDERS: PCP Internal Medicine; Visit Provider Internal Medicine Hematology & Oncology
DX: C16.9 Malignant neoplasm of stomach, unspecified (principal)
CPT/HCPCS: 36415; 36430; 85014; 85018; 86850; 86900; 86901; 86923; 96374; A9270; J1642; J1940; J7050; P9016

== ENCOUNTER 2023-03-03 12:02 | Outpatient (CLI) | payer MEDICARE, MEDICAID, SELFPAY ==
--- NOTE | ~2023-03-03 | PE_ITS ---
EXAMINATION: PET skull to mid thigh DATE: 03/03/2023 14:26 INDICATION: Stomach cancer TECHNIQUE: Blood glucose level was 95 mg/dL. 9.018 mCi of 18-fluorodeoxyglucose (18-FDG) was administ ered i.v. Low dose computed tomography (CT) images were acquired from the base of the brain to the pr oximal thighs for attenuation correction and anatomic localization. Positron emission tomography (PET ) images were acquired in the same distribution beginning 57 minutes after injection. Images includin g fused PET/CT images were reconstructed in axial, coronal, and sagittal planes. Automated exposure c ontrol technique was employed. The dose-length product was 481.20mGy-cm. COMPARISON: CT abdomen pelvis dated 07/04/2022 FINDINGS: Head/neck: There is increased activity in the oral cavity, laryngeal muscles, ocular muscles and bilateral an ocleidomastoid muscles, left greater than right without CT correlate, likely physiologic. No patholog ically enlarged cervical lymphadenopathy or suspicious foci of increased FDG uptake in the visualized head or neck. Right internal jugular central venous port catheter with distal tip at the caudal supe rior vena cava. Chest: There are multiple bilateral FDG avid pulmonary lesions which include 3 cavitary lesions in the right upper and middle lobes and several smaller and cephalad nodules in the left upper lobe and lingula. Consider largest cavitary mass at the right apex measures 2.7 cm in maximal diameter with maximal SUV of 6.8. The largest nodule in the left lung the anterior segment of the left upper lobe measures 1.2 cm with maximal SUV of 7.0. Calcified right lower lobe nodule consistent with old granulomatous dise ase. Heart size is normal. Atherosclerotic coronary artery calcification. No pericardial or pleural e ffusion. There is additional mild likely physiologic diffuse muscular activity at the bilateral shoul beverly girdles and upper arms. No pathologically enlarged or FDG avid thoracic lymphadenopathy. Abdomen/pelvis/proximal thighs: Physiologic renal accumulation and excretion of FDG activity in the kidneys, bladder and along portio ns of ureters. 1.2 cm exophytic cyst at the upper pole the right kidney and 1.[address] at the lower left kidney. There is also bilateral nonobstructing nephrolithiasis. Normal degree an d heterogenous pattern of increased uptake throughout the liver without radiologic correlate or domin ant FDG avid lesion. Status post cholecystectomy. Additional postoperative changes in the left upper quadrant about the proximal stomach and medial aspect of the spleen. There is relative decompression and associated wall thickening at the gastric antrum which may relate to reported gastric cancer. Thi s most suspicious of a small region with marked increased FDG uptake with maximal SUV of 93.1. There are bilateral adrenal masses with small regions of interval internal macroscopic fat better appreciat ed on prior MRI dated 07/06/2022 consistent with adrenal myelolipomas. The larger on the right measur es 2.8 cm. Mild to moderate uptake scattered throughout the bowels without radiologic correlate, also likely physiologic. Normal appendix. Postoperative change of prior ventral hernia mesh repair. The u terus is not identified and has likely been surgically resected. No other abnormal foci of increased FDG uptake or pathologically enlarged lymphadenopathy in the abdomen, pelvis or proximal thighs. Musculoskeletal: No suspicious lytic, blastic or FDG avid bone lesions. IMPRESSION: 1. Small focus of marked increased FDG uptake at the gastric antrum region were the anterolisthesis r elatively decompressed with wall thickening which likely represents the site of a reported gastric ca ncer. No evident associated metastatic lymphadenopathy in the upper abdomen. 2. Several bilateral subsolid and cavitary pulmonary nodules with increased FDG uptake. Differential would
[2023-03-03 12:41] LABS: Glucose Point of Care 95 mg/dl (65-105)
== END 2023-03-03 12:03 | disposition home or self-care (01) ==
PROVIDERS: PCP Family Medicine; Visit Provider Internal Medicine Hematology & Oncology
DX: C16.9 Malignant neoplasm of stomach, unspecified (principal); C16.0 Malignant neoplasm of cardia; N20.0 Calculus of kidney
CPT/HCPCS: 78815; A9552